=== PATIENT | female | born 1970 | race Caucasian/White ===

== ENCOUNTER 2023-10-07 18:40 | Inpatient (IN) | payer BC, SELFPAY ==
[2023-10-07] VITALS (7 sets, daily range): BP systolic 144–163; BP diastolic 71–120; BMI 20.9; BMI 22.7
--- NOTE | 2023-10-07 16:09 | EDRN ---
Dr. Martinez currently at the pts bedside speaking with the pt
--- NOTE | 2023-10-07 16:17 | ED.GENMED ---
History of Present Illness
General
Chief Complaint: Fall
Source: patient
Exam Limitations: none
Time Seen by Provider: 10/07/23 15:45
Nursing documentation reviewed up to this point in time: agreed with
Travel History
Have you had any contact with someone who has COVID-19?: No
Do you have any symptoms of coronavirus? Fever > 100 degrees, chills, cough, shortness of breath, sore throat, loss of taste or smell, muscle aches, or headache?: No
History of Present Illness
History of Present Illness:
Patient presents to ED for evaluation after falling down inside her house last night, while intoxicated. Patient presents with bilateral shoulder pain with bruising along with rib pain, as well as laceration noted over left eyebrow. Denies chest
pain. Denies abdominal pain. Patient has vomited multiple times prior to arrival. Patient last alcohol intake was this morning. Denies dizziness. Denies blurred vision. Denies loss of sensation or weakness. Patient states that as she was
significantly intoxicated, she does not recall how and why she fell.
Past History
Past History
ED Past Medical History: CHF (Cardiomyopathy)
Social History
Tobacco: Smoker
Alcohol: Chronic alcoholic
Drug: None
Personal: Other
Living: with family
Employment: Employed (Hairdresser)
Family History
Family History: Other (Noncontributory)
Review of Systems
Review of Systems
Allergies reviewed?: Yes
All Other Systems: ROS reviewed and negative except as documented in HPI and ROS
Constitutional: Reports no symptoms; Denies fever
EENT: Reports no symptoms
Respiratory: Reports no symptoms; Denies trouble breathing
Cardiac: Reports no symptoms
ABD/GI: Reports no symptoms; Denies vomiting
: Reports no symptoms
Musculoskeletal: Reports other (rib/shoulder pain w bruising)
Skin: Reports other (eyebrow laceration)
Neurological: Reports no symptoms; Denies dizzy, headache or weakness
Phy Exam
Physical Exam
Physical Exam:
Physical Exam
General: mild painful distress, not acutely ill. afebrile. tachycardic
Head: an approx 1cm superficial laceration over left eyebrow without active bleeding, with ecchymosis.
Neck: supple. normal range of motion.
Heart: tachycardic, no murmur. equal radial pulses.
Lungs: no acute respiratory distress. clear bilaterally. b/l anterior rib tenderness at level of rib#8-10, without ecchymosis/swelling
Abdomen: normal bowel sounds. not tender.
Neuro: alert and oriented. no focal neurological deficits
Skin: no rash
Psychiatric: well kept. interactive and cooperative
Extremities: b/l shoulder ecchymosis/swelling noted without obvious deformity
Course
Orders/Labs/Results
Orders:
Orders
10/07/23 09:04
Urinalysis Routine
Date Specimen was Collected: 10/08/23
Time Specimen was Collected: 09:02
Urine Drug Abuse Screen Routine
Date Specimen was Collected: 10/08/23
Time Specimen was Collected: 09:02
10/07/23 Dinner
Clear Liquid
At Your Request: Limited Participation
10/07/23 15:14
Electrocardiogram (*1) Urgent
Reason for Study: Chest Pain
EKG- Treatment ONCE
10/07/23 15:53
0.9% Sodium Chloride 1000 ml [Nss] 1,000 ml IV BOLUS
10/07/23 16:02
Alcohol Urgent
Complete Blood Count/With Diff Urgent
Comprehensive Metabolic Panel Urgent
Magnesium Urgent
Serum Osmolality Urgent
Comment: ADDON
TSH Reflex To Free T4 Urgent
Comment: ADD ON
10/07/23 16:12
CT Head W/o Iv Contrast Urgent
Comment:
Reason For Exam: trauma
Trauma Shoulder, Left CR [CR Shoulder, Trauma - Left] Urgent
Comment:
Reason For Exam: fall
Trauma Shoulder, Right CR [CR Shoulder, Trauma - Right] Urgent
Comment:
Reason For Exam: fall
10/07/23 16:13
Lorazepam [Ativan] 0.5 mg IV NOW STA
Ondansetron Injectable [Zofran] 4 mg IV NOW STA
10/07/23 16:15
Electrocardiogram (*1) Urgent
Reason for Study: QTc Monitoring
EKG- Treatment ONCE
0.9% Sodium Chloride 1000 ml [Nss] 1,000 ml IV BOLUS
10/07/23 16:21
Trimethobenzamide [Tigan] 200 mg IM Q6HPRN PRN
10/07/23 16:23
HYDROmorphone [Dilaudid] 0.5 mg IV NOW STA
10/07/23 16:24
PT/INR [Prothrombin Time] Urgent
PTT Urgent
10/07/23 16:32
CT Cervical Spine W/o Iv Contr Urgent
Comment:
Reason For Exam: trauma
10/07/23 16:41
CT Chest With Iv Contrast Urgent
Comment:
Reason For Exam: trauma
10/07/23 17:29
Ondansetron Injectable [Zofran] 4 mg IV NOW STA
10/07/23 17:30
HYDROmorphone [Dilaudid] 0.5 mg IV NOW STA
10/07/23 17:34
Lorazepam [Ativan] 1 mg IV NOW STA
10/07/23 17:51
Shoulder Immobilizer Right- Tx ONCE
10/07/23 17:57
0.9% Sodium Chloride 500 ml [Nss] 500 ml IV BOLUS
10/07/23 18:19
Admit/Transfer Patient As Directed
Co-Sign Provider:
Level of Care: Inpatient admission
Assign to:: Telemetry
Physician / Group: sharee bolden
Diagnosis: mechan fall w/bilat humeral head fx/s, etoh withdrawal, hypona, prolong qtc
Reason for Telemetry: Arrhythmia
Date to Stop Telemetry: 10/10/23
Time to Stop Telemetry: 11:00
Reason for Hospitalization: mechan fall w/bilat humeral head fx/s, etoh withdrawal, hypona, prolong qtc
Expected length of stay greater than two midnights?: Yes
ELOS- Estimated Length of Stay in days: 8
I certify the patient meets the requirements for IP care: Yes
Code Status As Directed
Resuscitation Status: Full Code
10/07/23 18:26
Consult Orthopedic [ORTHOPEDIC CONSULT] Routine
Consulting Provider: Spencer Myers
Was physician already notified: Yes
Reason for consult: filat humeral head fx/s etoh withdrawal
10/07/23 18:28
Add On- LAB Urgent
Tests Added?: tsh with free t4 reflex
10/07/23 18:29
Urine Osmolality Random [Osmolality, Random Urine] Routine
Date Specimen was Collected: 10/08/23
Time Specimen was Collected: 09:02
Urine Sodium Routine
Date Specimen was Collected: 10/08/23
Time Specimen was Collected: 09:02
Magnesium Sulfate 2 Gram/50 ml [Magnesium Sulfate] 2 gram in 50 ml IV NOW
10/07/23 18:31
Phenobarbital Sodium [Phenobarbital] 260 mg 0.9% Sodium Chloride 100 ml [Nss] 100 ml IV NOW
10/07/23 19:00
0.9% Sodium Chloride 1000 ml [Nss] 1,000 ml Mvi, Adult [Multivitamin] 10 ml Thiamine Injection 100 mg IV 100 mls/hr
10/07/23 20:19
0.9% Sodium Chloride 1000 ml [Nss] 1,000 ml IV 80 mls/hr
0.9% Sodium Chloride [Nss (Preservative Free)] See Protocol IV PRN PRN
FOLic ACID [Folvite] 1 mg 0.9% Sodium Chloride 50 ml [Nss] 50 ml IV DAILYPRN
HYDROmorphone [Dilaudid] 1 mg IV Q4HPRN PRN
Lorazepam [Ativan] 1 mg IV Q1HPRN PRN
Lorazepam [Ativan] 1 mg PO Q2HPRN PRN
Lorazepam [Ativan] 2 mg IV Q1HPRN PRN
Trimethobenzamide [Tigan] 200 mg IM Q6HPRN PRN
10/07/23 20:19
Case Management Consult Once
Case Management Consult: Other
Comment: Substance abuse counseling
DIETARY CONSULT Routine
Reason for Consult: Nutrition support, possible refeeding guidelines
Activity As Directed
Activity Level: With Assistance
Ice Application [Cold Application] As Directed
Location: [facility]
Frequency: Intermittent q2h
Duration of Application: No longer than 20 minutes
Method of Delivery: Ice packs
Intake/ Output As Directed
Frequency: Per unit guidelines
MSAS SCORE As Directed
MSAS Score 0-4: Repeat MSAS every 2 hours until 0-4 for three consecutive assessments, then every 4 hours x 48
hours.
MSAS Score 5-7: For MILD withdrawl symptoms. Repeat MSAS and RASS every 2 hours
MSAS Score 8-11: For MODERATE withdrawal symptoms. Repeat MSAS and RASS every 1 hour. Consider ICU or IMU
level of care.
MSAS Score > 11: For SEVERE withdrawal symptoms. Repeat MSAS and RASS every 1 hour. Notify provider, consider
ICU level of care.
MSAS Additional Instructions: If no improvement or no decrease in score from severe to moderate within 12
hours, consult psychiatry
MSAS Notify Provider: Notify provider if patient requires more than 10 mg of Lorazepam in eight hour period.
Vital Signs As Directed
Frequency: Per unit guidelines
Pulse Ox/spot Check [RESP] Routine
Quantity: 1
Rx Incentive Spirometry [RESP] Routine
Frequency: q1h while awake
Ot Eval And Treat Routine
Pt Eval And Treat Routine
Activity Level: With Assistance
DX Deep Vein Thrombosis Video Routine
10/07/23 20:40
B-Hydroxybutyrate Urgent
GGTP Urgent
PTT Urgent
Phosphorus Urgent
Prothrombin Time Urgent
10/08/23 00:00
Thiamine Injection 200 mg IV Q8
10/08/23 04:48
Complete Blood Count/With Diff IN AM
Comprehensive Metabolic Panel IN AM
10/08/23 06:00
EKG [Electrocardiogram (*1)] IN AM
Reason for Study: QTc Monitoring
10/08/23 08:00
FOLic ACID [Folvite] 1 mg PO DAILY
Phenobarbital Sodium [Phenobarbital] 97.5 mg IV TID
10/08/23 18:00
Enoxaparin Sodium [Lovenox] 40 mg SC QPM
10/09/23 06:00
Complete Blood Count/With Diff IN AM
Comprehensive Metabolic Panel IN AM
10/10/23 06:00
Complete Blood Count/With Diff IN AM
Comprehensive Metabolic Panel IN AM
10/10/23 08:00
Phenobarbital [Luminal] 64.8 mg PO TID
10/10/23 11:00
DC Protocol for Telemetry ONCE
10/10/23 20:00
Thiamine HCl [Vitamin B1] 100 mg PO BID
10/11/23 06:00
Complete Blood Count/With Diff IN AM
Comprehensive Metabolic Panel IN AM
10/12/23 06:00
Complete Blood Count/With Diff IN AM
Comprehensive Metabolic Panel IN AM
10/12/23 08:00
Phenobarbital [Luminal] 32.4 mg PO TID
Abnormal Lab Results
10/07/23
16:02
WBC 16.4 H 10^3/uL
(4.8-10.8)
RBC 3.31 L 10^6/uL
(4.20-5.40)
Hgb 11.7 L g/dL
(12.0-16.0)
Hct 33.1 L %
(37.0-47.0)
MCV 100.0 H fL
(81.0-99.0)
MCH 35.3 H pg
(27.0-31.0)
MPV 10.8 H fL
(7.4-10.4)
Abs Immat Gran (auto) 0.1 H 10^3/uL
(0-0.05)
Absolute Neuts (auto) 13.6 H 10^3/uL
(1.4-6.5)
Absolute Lymphs (auto) 0.9 L 10^3/uL
(1.2-3.4)
Absolute Monos (auto) 1.8 H 10^3/uL
(0.1-0.6)
Immature Gran % 0.6 H %
(0-0.5)
Neutrophils % 83.0 H %
(42.2-75.2)
Lymphocytes % 5.2 L %
(20.5-51.1)
Monocytes % 10.8 H %
(1.7-9.3)
Sodium 126 L mmol/L
(135-145)
Chloride 90 L mmol/L
(98-107)
Glucose 128 H mg/dl
(70-99)
Serum Osmolality 274 L mOsm/kg
(275-300)
AST 43 H U/L
(14-36)
Alkaline Phosphatase 132 H U/L
(38-126)
10/07/23 16:02
10/07/23 16:02
Vital Signs
Initial and Last Documented VS:
Initial Vital Signs
Temp Pulse Resp BP Pulse Ox
97.9 F 131 22 150/89 98
10/07/23 15:07 10/07/23 15:07 10/07/23 15:07 10/07/23 15:07 10/07/23 15:07
Last Documented Vital Signs
Temp Pulse Resp BP Pulse Ox
97.9 F 119 18 137/79 96
10/08/23 08:00 10/08/23 08:00 10/08/23 08:00 10/08/23 08:00 10/08/23 08:00
MDM/Problems Addressed
MDM/Problems Addressed:
CT head and CT cervical spine: No acute findings.
X-ray: Bilateral humerus fracture with subluxation as well as subacute rib fracture. (orthopaedic surgery) notified via [employer]
Patient with persistent nausea sensation with intermittent vomiting episodes despite treatment. Patient also high risk for development of alcohol withdrawals, i.e. DTs. As such, patient will be admitted for further evaluation and treatment.
*EKG
Interpreted by ED Provider?: Yes
EKG Intrepretation Date: 10/07/23
Heart Rate: 115
Rate: tachycardiac
Rhythm: sinus
[place]: normal axis
Interval: long QT
*Critical Care Note
Total Time (30-74mins, 75-104mins- exclusive of procedures): Not Applicable
ED Attending Note
-
Portions of this chart may have been created with voice recognition software.� Occasional wrong word or��sound alike� substitutions may have occurred due to the inherent limitations of voice recognition software.
Discharge Plan
Departure
Patient Disposition: Admit
Date of Disposition: 10/07/23
Time of Disposition: 17:43
Admit to: IMU
Presentation/result/management discussed w/ accepting MD/DO: Hospitalist
Discharge Problem:
Alcoholism, Fracture, humerus, Fracture of rib, Hyponatremia
Interventions
Interventions:
*Risk Screen - Suicide Last Done: 10/07/23 15:07
*General Assessment Last Done: 10/07/23 15:07
*Neglect/Abuse Screening Last Done: 10/07/23 15:07
ED- Fall Risk Assessment Last Done: 10/07/23 16:09
*ED COVID-19 Vaccine History Last Done: 10/07/23 16:09
*Nursing Disposition Last Done: 10/07/23 20:06
ED-Musculoskeletal Assessment Last Done: 10/07/23 16:09
ED- Neurological Assessment Last Done: 10/07/23 16:09
ED-Psychological Assessment Last Done: 10/07/23 16:09
ED-Skin Assessment Last Done: 10/07/23 16:09
Discharge Date and Time
Discharge Date/Time: 10/07/23 20:07
[2023-10-07] MEDS: NSS 1000 IV (16:25)
[2023-10-07] MEDS: DILAUDID 0.5 MG IV ×2 (16:25→17:37)
[2023-10-07] MEDS: TIGAN 200 MG IM (16:25)
[2023-10-07 16:35] LABS: % Basophils 0.2 % (0-2); % Eosinophils 0.2 % (0-6); % Immature Granulocytes 0.6 % (0-0.5); % Lymphocytes 5.2 % (20.5-51.1); % Monocytes 10.8 % (1.7-9.3); Absolute Immature Granulocytes 0.1 10^3/uL (0-0.05); Absolute Lymphocytes 0.9 10^3/uL (1.2-3.4); Absolute Monocytes 1.8 10^3/uL (0.1-0.6); Absolute Neutrophils 13.6 10^3/uL (1.4-6.5); Hematocrit 33.1 % (37.0-47.0); Hemoglobin 11.7 g/dL (12.0-16.0); Mean Corp Hgb Conc. 35.3 g/dL (33.0-37.0); Mean Corpuscular Hgb 35.3 pg (27.0-31.0); Mean Platelet Volume 10.8 fL (7.4-10.4); Nucleated Red Blood Cells % 0 %; Platelet Count 197 10^3/uL (130-400); Red Blood Cell Count 3.31 10^6/uL (4.20-5.40); Red Cell Dist. Width 13.6 % (11.5-14.5); White Blood Cell Count 16.4 10^3/uL (4.8-10.8)
[2023-10-07 16:47] LABS: INR 0.94; PT 12.4 Sec (11.4-14.6)
[2023-10-07 16:48] LABS: APTT 28.7 Sec (23.4-35.0)
[2023-10-07 16:50] LABS: ALT (SGPT) 22 U/L (0-35); AST (SGOT) 43 U/L (14-36); Albumin 4.3 g/dl (3.5-5.0); Alkaline Phosphatase 132 U/L (38-126); Blood Urea Nitrogen 16 mg/dl (7-17); Calcium 9.1 mg/dl (8.4-10.2); Carbon Dioxide 25 mmol/L (22-30); Chloride 90 mmol/L (98-107); Estimated Creatinine Clearance 68 ml/min; Glucose 128 mg/dl (70-99); Magnesium 1.6 mg/dl (1.6-2.3); Potassium 3.6 mmol/L (3.5-5.1); Sodium 126 mmol/L (135-145); Total Bilirubin 1.1 mg/dl (0.2-1.3); eGFR > 60.00
[2023-10-07 16:52] LABS: Alcohol None Detected
[2023-10-07] MEDS: ZOFRAN 4 MG IV (17:37)
--- NOTE | 2023-10-07 17:55 | HPS.HSE ---
Addendum entered and electronically signed by Kasia Gomez MD 10/07/23 21:48:
Patient seen and evaluated with BUTCHER SCULLION. Agree with H&P findings. Discussed patient and agree stated assessment and plan.
Briefly, 53 F. H/O ETOH dependence (daily vodka intake) and h/o withdrawal symptoms presents to ED following a fall from standing height at home. Found to have bilateral humeral neck fractures, subacute rib fractures. Head CT negative.
Per Ortho, going to OR after inpatient detox. Hypertensive, tachycardic and tremulous in ED already in withdrawal with high risk of DT and withdrawal seizures. QTc prolongation on ECG.
Admit to telemtry. Withdrawal protocol with phenobarb taper. IV hydration. 2g IV mag. Pain control and antiemetics.
DVT PPx with lovenox sq
Full Code
Original Note:
Family Physician
-
Family Physician: * NONE
Chief Complaint
-
Fall bilateral shoulder pain
History of Present Illness
53-year-old female from home who states she was drinking vodka last night approximate 1/2 pint with 2 beers at some point she recalls falling in her enclosed porch area at approximately 3 AM. She reports she crawled into her living room where she
was able to get up to the sofa and was found at 10 AM 7 hours later by her . At that time she was having some dry heaving. She was unable to move her arms secondary to pain. She normally drinks as soon as she wakes up in the morning her
gave her 1 beer at approximately 1130 to try to stop her vomiting he felt was due to alcohol withdrawal. She normally drinks anywhere from 1/3-1 full bottle 750 mL of vodka daily and smokes 1 pack a day. She has never had alcohol rehab
except for a 302 5 years ago forced. She has been unemployed for the last 2 and half years according to her at bedside. She is a contusion to the left side of her forehead with abrasion over left eyebrow, bilateral shoulder contusions with
decreased range of motion secondary to bilateral humeral head fractures. Distal sensation to both hands are intact. She denies headache, blurred vision, chest pain, palpitations, shortness of breath, abdominal pain, nausea vomit, diarrhea, urinary
symptoms, fever, chills. She is has medical history of alcohol abuse, nicotine abuse. She did take Advil 600 mg prior to arrival of which she does not take daily she reported.
Medical History
Past Medical History
Past Medical History: Reports Other (Alcohol abuse, nicotine abuse)
Past Surgical History: Reports Other (D&C)
Social History
Tobacco: Smoker (1 pack/day)
Alcohol: Daily (1/3-1 750 mL bottle of vodka daily)
Personal:
Living: With Family ()
Employment: Not Employed
Family History
Family History: Not pertinent
Allergies / Home Medications
Allergies reflects when Allergies were last updated in [employer].
Home Medications with original date entered in [employer]
Allergy/Medication List:
Allergies
Allergy/AdvReac Type Severity Reaction Status Date / Time
No Known Allergies Allergy Verified 10/07/23 15:07
Home Medications
ibuprofen 200 mg tablet (Advil) 600 mg PO DAILYPRN PRN mild pain 10/07/23
Review of Systems
-
History Source: Patient and Family ( at bedside)
A 12 point ROS was completed and negative except as noted: Yes
Constitutional: Denies Fever
EENT: Denies Sore Throat or Runny Nose
Respiratory: Reports Cough; Denies Trouble Breathing
Cardiac: Denies Chest Pain, Diaphoresis, Palpitations or Syncope
Abdomen/GI: Reports Nausea and Vomiting; Denies Abdominal Pain, Diarrhea, Constipated, Bloody Stools or Black Stools
: Denies Dysuria, Frequency, Flank Pain, Incontinence, Difficulty Voiding or Urgency
Musculoskeletal: Reports Joint Pain and Joint Swelling (Bilateral humerus); Denies Edema
Skin: Denies Itching or Rash
Neurological: Denies Dizzy, Headache or Weakness
Endocrine: Reports No Symptoms
Hematologic/Lymphatic: Reports No Symptoms
Psych: Reports Calm
Physical Exam
Vital Signs
Vital Signs
Temp Pulse Resp BP Pulse Ox
97.9 F 120 17 156/120 95
10/07/23 15:07 10/07/23 16:15 10/07/23 16:15 10/07/23 16:01 10/07/23 16:15
Physical Exam
General: Conversant and Pain; No Fever
HEENT: NormoCephalic, Anicteric, Moist mucous membranes, PERRLA, [place] Conjunctivae, No Ptosis, Nose Appears Normal, Neck Nontender and Other (Contusion left frontal forehead, abrasion left eyebrow)
Respiratory: Clear; No Wheezes, Rales or Rhonchi
Cardiac: S1/S2 and Regular Rhythm; No Murmur, Rub, Gallop or Peripheral Edema
Breast: Deferred by me
GI: Soft, Non Tender, Non Distended, Normal Bowel Sounds and No Hepatosplenomegaly
Rectal: Deferred by Provider
Genito-urinary: Deferred by me
Musculoskeletal: No Clubbing, No Cyanosis, Edema, Left Upper Extremity (Shoulder with upper humerus swelling, erythema, limited range of motion secondary to humeral head fracture, distal sensation intact, normal cap refill) and Edema, Right Upper
Extremity (Shoulder with upper humerus swelling, erythema, limited range of motion secondary to humeral head fracture, distal sensation intact, normal cap refill); No Edema, Left Lower Extremity or Edema, Right Lower Extremity
Skin: Warm and Dry
Neuro: AO x 3, No Motor Deficits, Nonfocal/grossly intact, Cranial Nerves Intact, No Sensory Deficits and Tremors (Bilateral hands); No Slurred Speech or Facial Droop
Psych: Calm
Laboratory Results
-
10/07/23 16:02
10/07/23 16:02
Laboratory Results
PT 12.4 Sec (11.4-14.6) 10/07/23 16:24
INR 0.94 10/07/23 16:24
APTT 28.7 Sec (23.4-35.0) 10/07/23 16:24
Total Bilirubin 1.1 mg/dl (0.2-1.3) 10/07/23 16:02
AST 43 U/L (14-36) H 10/07/23 16:02
ALT 22 U/L (0-35) 10/07/23 16:02
Alkaline Phosphatase 132 U/L (38-126) H 10/07/23 16:02
Impression/Plan
-
Impression/plan
Admit to telemetry
# Mechanical fall 2/2 alcohol intoxication with bilateral humeral head fractures/subacute ninth 10th right rib fractures
-Consult Ortho�Dr. Ritting aware
-Ice
-As needed Dilaudid
-Ice chips advance diet as tolerated
-Bilateral arm slings
PT/OT/transplant case manager consult
CT chest with IV contrast:
1. Comminuted displaced bilateral proximal humerus fractures
2. Posterior lateral right ninth and 10th subacute/partially healed rib fractures
CT head and cervical spine: No acute intracranial abnormality, no fracture or subluxation of the cervical spine
Left and right shoulder x-rays:
Displaced comminuted bilateral proximal numerous fractures associated with bilateral glenohumeral joint subluxation/dislocations
#Alcohol withdrawal/alcohol abuse
EtOH negative, last drink 11:30 AM 1 beer
Normally drinks 1/3-1 bottle 750 mL vodka daily
-MSAs screen protocol
-IV thiamine, IV folate
-Phenobarb taper
EKG: Sinus tach 115 bpm, QTc 614 MS
#Prolonged QTc
QTc 614 MS will monitor on telemetry
-Repeat EKG in a.m.
Magnesium 1.6
-will give mag rider 2 g
-Tigan as needed nausea vomiting
#Leukocytosis likely secondary to fall
Will follow CBC
-CT chest negative
#Hypertension likely secondary to alcohol withdrawal/pain
156/120 > 156/83 post IV Dilaudid
Will monitor
#Hyponatremia euvolemic
NA 126
IV NSS 1 L
-Check TSH with free T4, urine NA, urine Osmo, serum Osmo
DVT prophylaxis
Subcu Lovenox
Full code
[2023-10-07] MEDS: ATIVAN 1 MG IV (17:57)
[2023-10-07] MEDS: NSS 500 IV (17:58)
--- NOTE | 2023-10-07 18:06 | EDRN ---
Erica Escalante [employer] at the pts bedside along with Dr. Dougherty speaking with the pt and the pts
[2023-10-07] MEDS: MULTIVITAMIN 1011 MG IV (18:30)
[2023-10-07] MEDS: MULTIVITAMIN 1011 ML IV (18:30)
[2023-10-07] MEDS: MAGNESIUM SULFATE 50 IV (18:41)
[2023-10-07] MEDS: PHENOBARBITAL 104 MG IV (18:48)
[2023-10-07 20:14] LABS: Osmolality Serum 274 mOsm/kg (275-300)
[2023-10-07 20:50] LABS: TSH Reflex To Free T4 0.88 uIU/ml (0.47-4.68)
[2023-10-07 21:01] LABS: GGTP 183 U/L (12-43); Phosphorus 5.2 mg/dl (2.5-4.5)
[2023-10-07 21:08] LABS: B-Hydroxybutyrate 0.35 mmol/L (0.02-0.27)
[2023-10-07 21:10] LABS: INR 0.96; PT 12.6 Sec (11.4-14.6)
[2023-10-07 21:11] LABS: APTT 28.4 Sec (23.4-35.0)
[2023-10-08] MEDS: DILAUDID 1 MG IV (02:32)
[2023-10-08] MEDS: NICODERM TRANSDERMAL 21 MG TRANSDERM ×2 (02:33→08:52)
[2023-10-08 02:43] VITALS: BP 142/90
[2023-10-08] MEDS: NSS 1000 IV (04:41)
[2023-10-08] MEDS: THIAMINE INJECTION 200 MG IV ×3 (04:46→15:58)
--- NOTE | 2023-10-08 05:35 | PTCARENOTE ---
Pt arrived via stretcher. Pulled over to room bed. VSS. drowsy but arousable to verbal stimuli. Complained of slight pain with movements. NO other concerns. Bed locked and in lowest position. Side rails in place. Call light within reach. Pt ordered
MSAS see worklist.
[2023-10-08 05:50] LABS: % Basophils 0.5 % (0-2); % Immature Granulocytes 0.6 % (0-0.5); % Lymphocytes 18.4 % (20.5-51.1); % Monocytes 16.1 % (1.7-9.3); % Neutrophils 64.4 % (42.2-75.2); Absolute Immature Granulocytes 0.1 10^3/uL (0-0.05); Absolute Lymphocytes 1.5 10^3/uL (1.2-3.4); Absolute Monocytes 1.3 10^3/uL (0.1-0.6); Absolute Neutrophils 5.2 10^3/uL (1.4-6.5); Hematocrit 22.1 % (37.0-47.0); Mean Corp Hgb Conc. 35.3 g/dL (33.0-37.0); Mean Corpuscular Hgb 35.6 pg (27.0-31.0); Mean Corpuscular Volume 100.9 fL (81.0-99.0); Mean Platelet Volume 11.3 fL (7.4-10.4); Nucleated Red Blood Cells % 0 %; Platelet Count 114 10^3/uL (130-400); Red Blood Cell Count 2.19 10^6/uL (4.20-5.40); White Blood Cell Count 8.1 10^3/uL (4.8-10.8)
[2023-10-08 05:54] LABS: ALT (SGPT) 16 U/L (0-35); AST (SGOT) 33 U/L (14-36); Albumin 2.7 g/dl (3.5-5.0); Alkaline Phosphatase 93 U/L (38-126); Blood Urea Nitrogen 20 mg/dl (7-17); Calcium 7.7 mg/dl (8.4-10.2); Carbon Dioxide 25 mmol/L (22-30); Chloride 95 mmol/L (98-107); Estimated Creatinine Clearance 53 ml/min; Glucose 109 mg/dl (70-99); Potassium 4.1 mmol/L (3.5-5.1); Sodium 125 mmol/L (135-145); Total Bilirubin 0.7 mg/dl (0.2-1.3); eGFR > 60.00
[2023-10-08 06:02] LABS: Hemoglobin 7.8 g/dL (12.0-16.0)
[2023-10-08] MEDS: MAGNESIUM SULFATE 50 IV (06:42)
[2023-10-08 08:00] VITALS: BP 137/79
--- NOTE | 2023-10-08 08:43 | W.PN.UPDATE ---
Update Note
Progress Note Update
53-year-old female seen this morning for consult. Full H&P will follow. Images were shown and discussed with the patient as well as the significance of her injuries. She is recommended for CT scan for her bilateral shoulders given the amount of
displacement and for surgical planning for possible reverse total shoulder arthroplasty. Patient verified understanding. Tentative for OR 10 October 2023 pending imaging.
Monitor hemoglobin with drop to 7.8; evidence of hemarthrosis right greater than left on examination but no sign of hemodynamic instability relative to fractures
Patient states may require anxiolytic for CT scans; and recommendation per primary with current alcohol withdrawal treatment.
[2023-10-08] MEDS: FOLVITE 1 MG PO (08:47)
[2023-10-08] MEDS: PHENOBARBITAL 97.5 MG IV ×3 (08:47→21:20)
--- NOTE | 2023-10-08 08:51 | W.PN.HOSP.TC ---
Today's Communication/Plan
-
see note
Assessment / Plan
Assessment / Plan
CT chest with IV contrast:
�� � � � � � � 1.� Comminuted displaced bilateral proximal humerus fractures
�� � � � � � � 2.� Posterior lateral right ninth and 10th subacute/partially healed rib fractures
CT head and cervical spine: No acute intracranial abnormality, no fracture or subluxation of the cervical spine
Left and right shoulder x-rays:
� � � � � � � � Displaced comminuted bilateral proximal numerous fractures associated with bilateral glenohumeral joint subluxation/dislocations

# Mechanical fall 2/2 alcohol intoxication with bilateral humeral head fractures/subacute ninth 10th right rib fractures
-Consult Ortho�Dr. Lucia aware
-Ice chips advance diet as tolerated
-Bilateral arm slings
-Oral narcotics and IV pain meds, adjusted
#Alcohol withdrawal/alcohol abuse
-EtOH negative, last drink at 10/06 Noon
-Normally drinks 1/3-1 bottle 750 mL vodka daily
-MSAs screen protocol
-IV thiamine, IV folate
-Phenobarb taper and IV ativan as needed
-Patient would benefit with alc rehab but with b/l humeral fracture will need physical rehab first.
#Prolonged QTc
Hypomagnesemia
-QTc 614 at admit
-repeat EKG pending today.
-got mag 2g yesterday. low Ca today - giving 2g tressa gluconate.
-Tigan as needed nausea vomiting
-Avoid any QTc prolonging medication
#Leukocytosis likely secondary to fall
-Will follow CBC
-CT chest negative
#Acute on chronic macrocytic anemia
-r/o Intraperitoneal bleed -ct a/p wo contrast ordered
-no luminal blood loss/denies h/o of pud/gi bleed
-repeat CBC ordered
#Hypertension likely secondary to alcohol withdrawal/pain
156/120 > 156/83 post IV Dilaudid
Will monitor
#Hyponatremia euvolemic
-TSH/FT4 wnl
-suspecting low solute intake vs ADH excess state with pain
-Urine na/osm pending.
DVT prophylaxis -Subcu Lovenox
Full code
Patient is high risk for cardia arrthymia/arrest with prolonged QTc. Also remains high risk for withdrawal and further complication.
Total time spent : 53 mins
Anticipated Discharge: > 48 hours
Subjective/Interval History
-
Date of Service: October 08, 2023
comfortable in bed
requesting next dose of pain meds
oriented/no agitation reported
Objective Data
-
Labs:
Laboratory Results
10/07/23 10/08/23
20:40 04:48
WBC 8.1
Hgb 7.8 L D
Hct 22.1 L
Plt Count 114 L D
PT 12.6
INR 0.96
APTT 28.4
Sodium 125 L
Potassium 4.1
Chloride 95 L
Carbon Dioxide 25
BUN 20 H
Creatinine 0.9
Glucose 109 H
Calcium 7.7 L
Total Bilirubin 0.7
AST 33
ALT 16
Alkaline Phosphatase 93
Vital Signs:
Vital Signs
Temp Pulse Resp BP Pulse Ox
97.9 F 119 18 137/79 95
10/08/23 08:00 10/08/23 08:00 10/08/23 08:00 10/08/23 08:00 10/08/23 08:00
I&O
10/07/23 10/08/23 10/09/23
06:59 06:59 06:59
Intake Total 240 / 240
Balance 240 / 240
Review of Systems
-
Respiratory: Reports No Symptoms
Cardiac: Reports No Symptoms
Abdomen/GI: Reports No Symptoms
Musculoskeletal: Reports Joint Pain
Physical Exam
-
General: No Apparent Distress and Comfortable
HEENT: Negative Oxygen
Respiratory: Clear to Auscultation
Cardiac: Regular Rhythm and S1/S2; Negative Murmur or Rub
GI: Soft, Nontender and Nondistended
Musculoskeletal: No Edema and Other (Both shoulder swelling/erythema)
Neuro: Awake, Alert, Oriented, No Motor Deficits and Nonfocal/Grossly Intact
Psych: Calm
[2023-10-08] MEDS: ROXICODONE 5 MG PO ×2 (09:09→15:16)
[2023-10-08 09:18] LABS: Urine Albumin Trace (Neg - Trace); Urine Bilirubin 1+ (Negative); Urine Character Clear (Clear); Urine Color Amber; Urine Glucose Negative (Negative); Urine Ketone Trace (Negative); Urine Leukocyte Trace (Negative); Urine Nitrite Positive (Negative); Urine Occult Blood Negative (Negative); Urine Specific Gravity 1.015 (<1.030); Urine Urobilinogen Negative (Neg - 1+)
[2023-10-08 09:33] LABS: Osmolality Urine 582 mOsm/kg (300-900)
[2023-10-08 09:37] LABS: Urine Red Blood Cell 0-2 /HPF (0-2); Urine White Cell 0-2 /HPF (0-5)
[2023-10-08 09:47] LABS: Amphetamines Positive (Negative)
[2023-10-08 09:48] LABS: Barbiturates Positive (Negative); Benzodiazepines Positive (Negative); Buprenorphine Negative (Negative); Cocaine Negative (Negative); Marijuana Negative (Negative); Methadone Negative (Negative); Methamphetamines Positive (Negative); Opiates Positive (Negative); Phencyclidine Negative (Negative); Tricyclic Antidepressants Negative (Negative)
[2023-10-08] MEDS: CALCIUM GLUCONATE 100 IV (10:01)
[2023-10-08] MEDS: MIRALAX 17 GRAMS PO (10:01)
[2023-10-08 10:03] LABS: Urine Sodium 11 mmol/L (30-90)
[2023-10-08 10:11] LABS: Fentanyl, Urine Negative (Negative)
[2023-10-08 11:30] LABS: Vitamin D, 25-OH*** < 12.8 ng/mL (30-80)
--- NOTE | 2023-10-08 12:00 | CM ---
Addendum entered by Chantel Aguilera RN 10/08/23 12:04:
Received CM consult for substance abuse. Offered resources, but the patient declined.
Original Note:
Reviewed the chart notes and spoke with the patient at the bedside. Patient with bilateral arm slings in place. Per notes, plan is for OR 10/10/23 for possible reverse total shoulder arthroplasty. The patient resides with her spouse in a two story
home with two steps to enter. The patient reports no DME/VN/SNF in the past. The patient confirmed her pharmacy of choice is the [facility]. CM continues to be available to patient/family and is monitoring medical plan for
needs at discharge.
Plan: Discharge plans will depend on the patient's progress. May need short term SNF/rehab placement prior to transitioning home.
[2023-10-08 13:12] LABS: Hemoglobin 7.5 g/dL (12.0-16.0); Mean Corp Hgb Conc. 35.7 g/dL (33.0-37.0); Mean Corpuscular Hgb 36.2 pg (27.0-31.0); Mean Corpuscular Volume 101.4 fL (81.0-99.0); Mean Platelet Volume 10.8 fL (7.4-10.4); Platelet Count 105 10^3/uL (130-400); Red Blood Cell Count 2.07 10^6/uL (4.20-5.40); White Blood Cell Count 7.2 10^3/uL (4.8-10.8)
[2023-10-08 14:14] VITALS: BMI 22.7
[2023-10-08 14:52] VITALS: BMI 23.2
[2023-10-08 16:00] VITALS: BP 143/86
[2023-10-08] MEDS: LOVENOX 40 MG SC (18:31)
[2023-10-08 19:45] VITALS: BP 127/80
[2023-10-08] MEDS: ROXICODONE 10 MG PO (20:06)
--- NOTE | 2023-10-08 20:32 | CON.ORTHO ---
Consultation
-
Date/Time Consultation Requested: 10/07/2023 1826
Date/Time Consultation Performed: 10/08/2023 0800
Requesting Provider: THAI Escalante
Performing Provider: REJI Sauer, Dr. Spencer Myers
Reason for Consultation: Bilateral proximal humerus fractures
Consultation - Orthopedics
History
53-year-old tyozv-yllo-xdctkvlg female admitted to [facility] after an unwitnessed fall secondary to intoxication 06 October 2023 and admitted through the emergency department 07 October 2023 secondary to pain in the bilateral upper
extremities. While intoxicated she had an unwitnessed fall and noted severe pain later when sobering. She denies any chronic pain in her upper extremities. She does not recall any preceding events. Denies any paresthesias at this time. Reports
some minor back soreness but denies any other injury sustained.
Allergies / Home Medications
Allergy/AdvReac Type Severity Reaction Status Date / Time
No Known Allergies Allergy Verified 10/07/23 15:07
Medication Instructions Recorded
ibuprofen 200 mg tablet (Advil) 600 mg PO DAILYPRN PRN mild pain 10/07/23
Past Medical History: Reports Other (Alcohol abuse, nicotine abuse)
Past Surgical History: Reports Other (D&C)
Social History
Tobacco: Smoker (1 pack/day)
Alcohol: Daily (1/3-1 750 mL bottle of vodka daily)
Personal:
Living: With Family ()
Employment: Not Employed
Right hand dominant
Family History
Family History: Not pertinent
ROS: 12 point ROS negative other than per HPI
Vital Signs / Lab Results
Temp Pulse Resp BP Pulse Ox
99.0 F 118 18 143/86 97
10/08/23 16:00 10/08/23 16:00 10/08/23 16:00 10/08/23 16:00 03/18/24 16:00
10/08/23 04:48
Physical examination:
General: Well-nourished well-developed no acute distress conscious alert and oriented
Musculoskeletal: Examination of bilateral upper extremities shows swelling with erythematous skin right greater than left with large underlying hemarthrosis localized about the shoulder and some swelling in towards the mid brachium. She has no
significant edema past the elbows and distally and is neuro vas intact C5-T1 with sensation intact to light touch in the axillary nerve dermatome. Motor functions intact to the AIN PIN and ulnar nerve, sensation intact to light touch radial ulnar
and median nerve. Wrist capillary refill is 2 seconds palpable radial pulse.
Imaging:
X-rays taken of the bilateral shoulders show comminuted bilateral fractures with significant subluxation and malrotation of the humeral heads at the level of the surgical neck.
Assessment / Plan
53-year-old kiwuf-tiuf-cctchuzx female with significant past medical history of alcohol abuse and tobacco use with unwitnessed fall secondary to intoxication 06 October 2023 and admitted 07 October 2023 with comminuted fracture subluxations of her
bilateral proximal humerus.
Images were shown and discussed with the patient showing the severity of her injuries bilaterally. Discussed with the patient the proximal humerus fractures cannot be treated nonoperatively however with the malrotation and subluxation and her young
age she is recommended for operative invention. She is a high risk for avascular necrosis with the amount of subluxation and displacement of the humeral head relative to the humerus. Patient is likely best recommended for total shoulder
arthroplasty. Her fall was unwitnessed and may have been higher mechanism however with her history of alcohol abuse there is likely component of osteoporosis involved as these are typically fragility fractures. See comments below. At this time
patient is recommended for bilateral CT scan of the shoulder for operative planning and evaluate the extent of her fracture pattern. She is tentatively to the OR 10 October 2023; pending CT scans will confirm operative planning if medically cleared.
-Nonweightbearing to bilateral upper extremities; no range of motion of the shoulder bilateral.
-DVT PPx per primary
-Pain regimen on board
-Will continue to monitor hemoglobin and was low at 7.8 today and likely multifactorial with her past medical history and relative towards hemarthrosis but no evidence of hemodynamic instability on examination.
Discussed with the patient that the sustained fracture is commonly known as a fragility fracture secondary to osteoporosis. Further explained the fracture is unlikely to occur in normal physiological bone and occurs with more fragile bone in
classically described locations such as the hip, distal radius, proximal humerus, and spine. Reviewed that patients with fragility fractures have an increased risk of second and even third fragility fractures over the next 1 to 2 years. Recommend
a follow-up discussion with their PCP discuss treatment for osteoporosis and mitigate fall risk is much as possible include modalities such as assistive devices.
[2023-10-08 23:13] VITALS: BP 111/70
[2023-10-08 23:35] LABS: Hemoglobin 7.3 g/dL (12.0-16.0); Mean Corp Hgb Conc. 36.3 g/dL (33.0-37.0); Mean Corpuscular Hgb 36.1 pg (27.0-31.0); Mean Corpuscular Volume 99.5 fL (81.0-99.0); Mean Platelet Volume 11.3 fL (7.4-10.4); Platelet Count 98 10^3/uL (130-400); Red Blood Cell Count 2.02 10^6/uL (4.20-5.40); Red Cell Dist. Width 13.7 % (11.5-14.5); White Blood Cell Count 6.5 10^3/uL (4.8-10.8)
[2023-10-08 23:37] LABS: Hematocrit 20.1 % (37.0-47.0)
[2023-10-09] VITALS (10 sets, daily range): BP systolic 109–137; BP diastolic 63–76
[2023-10-09] MEDS: ROXICODONE 10 MG PO ×6 (01:04→23:46)
[2023-10-09] MEDS: THIAMINE INJECTION 200 MG IV ×4 (01:05→23:45)
--- NOTE | 2023-10-09 06:37 | W.PN.UPDATE ---
Update Note
Progress Note Update
Patient seen and evaluated this morning by orthopedic surgery. Patient endorses discomfort to the bilateral shoulders, however reports that her symptoms are currently controlled with her current pain regimen. X-rays obtained of the bilateral
shoulder show comminuted bilateral fractures with significant subluxation of the humeral heads at the level of the surgical neck. Plan for OR on 10/10/2023, under direction of Dr. Myers. CT scan completed for pre-operative planning and
to evaluate the extent of her fracture pattern. Patient to remain nonweightbearing to the bilateral upper extremities, no range of motion of the bilateral shoulders. DVT prophylaxis per primary team. Pain management per primary team. Hemoglobin
7.3 (10/08/2023). Hemoglobin this AM 6.8. [facility] Text sent to primary team (Dr. Reynolds). Orthopedic surgery will continue to follow along.
[2023-10-09 06:58] LABS: % Basophils 0.6 % (0-2); % Eosinophils 0.2 % (0-6); % Immature Granulocytes 0.7 % (0-0.5); % Lymphocytes 19.3 % (20.5-51.1); % Monocytes 14.7 % (1.7-9.3); % Neutrophils 64.5 % (42.2-75.2); Absolute Lymphocytes 1.1 10^3/uL (1.2-3.4); Absolute Monocytes 0.8 10^3/uL (0.1-0.6); Absolute Neutrophils 3.5 10^3/uL (1.4-6.5); Mean Corp Hgb Conc. 34.7 g/dL (33.0-37.0); Mean Corpuscular Volume 103.7 fL (81.0-99.0); Mean Platelet Volume 11.3 fL (7.4-10.4); Nucleated Red Blood Cells % 0 %; Platelet Count 98 10^3/uL (130-400); Red Blood Cell Count 1.89 10^6/uL (4.20-5.40); Red Cell Dist. Width 13.5 % (11.5-14.5); White Blood Cell Count 5.5 10^3/uL (4.8-10.8)
[2023-10-09 07:01] LABS: Hematocrit 19.6 % (37.0-47.0); Hemoglobin 6.8 g/dL (12.0-16.0)
[2023-10-09 07:21] LABS: ALT (SGPT) 14 U/L (0-35); AST (SGOT) 37 U/L (14-36); Albumin 2.5 g/dl (3.5-5.0); Alkaline Phosphatase 96 U/L (38-126); Blood Urea Nitrogen 9 mg/dl (7-17); Calcium 7.8 mg/dl (8.4-10.2); Carbon Dioxide 27 mmol/L (22-30); Chloride 95 mmol/L (98-107); Estimated Creatinine Clearance 80 ml/min; Glucose 107 mg/dl (70-99); Magnesium 1.9 mg/dl (1.6-2.3); Phosphorus 3.5 mg/dl (2.5-4.5); Potassium 3.6 mmol/L (3.5-5.1); Sodium 123 mmol/L (135-145); Total Protein 4.8 g/dl (6.3-8.2); eGFR > 60.00
[2023-10-09] MEDS: MIRALAX PO (09:00)
[2023-10-09] MEDS: NICODERM TRANSDERMAL 21 MG TRANSDERM (09:01)
[2023-10-09] MEDS: FOLVITE 1 MG PO (09:03)
[2023-10-09] MEDS: PHENOBARBITAL 97.5 MG IV ×3 (09:06→23:44)
--- NOTE | 2023-10-09 10:24 | W.CON.NEPH ---
Consultation
-
Date/Time Consultation Requested: October 09, 2023 10:00 AM
Date/Time Consultation Performed: October 09, 2023 10:00 AM
Requesting Provider: Rodolfo
Performing Provider: Willow
Reason for Consultation: Hyponatremia
Medical History
-
Chief Complaint: Hyponatremia
History of Present Illness:
The patient is a 53-year-old female with a past medical history significant of ongoing alcohol abuse and a history of alcohol withdrawal symptoms who presented to the emergency room 2 days prior after falling. Subsequent imaging revealed bilateral
humeral neck fractures in association with subacute healed rib fractures. The patient was admitted to the hospital for her acute trauma and provided with benzodiazepines for anticipated alcohol withdrawal. She had been taking NSAIDs prior to her
admission for pain. When she presented to the emergency room she was hypertensive tachycardic and tremulous. The patient is to undergo bilateral shoulder surgery tomorrow on October 10, 2023. Nephrology was consulted as her serum sodium level has
now decreased from 126-123.
Past Medical History
Alcohol abuse with previous withdrawal
D&C for miscarriage
Genetic cardiomyopathy
Social History
Longstanding smoker 1 pack/day
Daily alcohol ingestion with 1/3-1 bottle of the 750 cc bottle of vodka daily
Family History
No CKD
Allergies / Home Medications
Allergy/AdvReac Type Severity Reaction Status Date / Time
No Known Allergies Allergy Verified 10/07/23 15:07
Medication Instructions Recorded Confirmed Type
ibuprofen 200 mg tablet (Advil) 600 mg PO DAILYPRN PRN mild pain 10/07/23 10/07/23 History
Review of Systems
-
History Source: Patient
All other systems: Negative unless noted
Constitutional: No Symptoms
EENT: Other (Abrasion over left eyebrow)
Respiratory: No Symptoms
Cardiac: No Symptoms
Abdomen/GI: No Symptoms
: No Symptoms
Musculoskeletal: Other (Bilateral shoulder pain)
Skin: No Symptoms
Neurological: No Symptoms
Endocrine: No Symptoms
Hematologic/Lymphatic: No Symptoms
Physical Exam
Vital Signs
Vital Signs
Temp Pulse Resp BP Pulse Ox
98.7 F 111 18 124/66 97
10/09/23 09:53 10/09/23 09:53 10/09/23 09:53 10/09/23 09:53 10/09/23 09:53
Lab Results
10/09/23 05:37
10/09/23 05:37
WBC 5.5 10^3/uL (4.8-10.8) 10/09/23 05:37
RBC 1.89 10^6/uL (4.20-5.40) L 10/09/23 05:37
Hgb 6.8 g/dL (12.0-16.0) L* 10/09/23 05:37
Hct 19.6 % (37.0-47.0) L* 10/09/23 05:37
Plt Count 98 10^3/uL (130-400) L 10/09/23 05:37
Sodium 123 mmol/L (135-145) L 10/09/23 05:37
Potassium 3.6 mmol/L (3.5-5.1) 10/09/23 05:37
Chloride 95 mmol/L (98-107) L 10/09/23 05:37
Carbon Dioxide 27 mmol/L (22-30) 10/09/23 05:37
BUN 9 mg/dl (7-17) 10/09/23 05:37
Creatinine 0.6 mg/dL (0.6-1.0) 10/09/23 05:37
eGFR > 60.00 10/09/23 05:37
Glucose 107 mg/dl (70-99) H 10/09/23 05:37
Calcium 7.8 mg/dl (8.4-10.2) L 10/09/23 05:37
Phosphorus 3.5 mg/dl (2.5-4.5) 10/09/23 05:37
Albumin 2.5 g/dl (3.5-5.0) L 10/09/23 05:37
Physical Exam
General: AOx3
HEENT: PERRL, EOMI, Anicteric, Conjunctivae Clear, Ear/Nose Intact, Hearing Normal, Oropharynx Clear/Moist, Neck Supple, Trachea Midline, No JVD, No Thyromegaly and Other (Abrasion over left brow)
Respiratory: Clear
Cardiac: Regular Rate/Rhythm
Breast: Deferred by me
Abdomen: Soft, Nontender, Nondistended, Normal Bowel Sounds and No Hepatosplenomegaly
Rectal: Deferred by Provider
Genito-urinary: No Costovertebral Tender
Musculoskeletal: No Clubbing, No Cyanosis and No Edema
Skin: No Rash
Neuro: Nonfocal/Grossly Intact, CN II-XII (Intact) and Strength (5 out of 5 in lower extremity, 1 out of 5 in upper extremity, patient in shoulder brace)
Hematologic/Lymphatic: No Cervical Lymphadenopathy, No Submandibular Lymphadenopathy and No Supraclavicular Lymphadenopathy
Psych: Mood/afflect pleasant
Assessment/Plan
-
Impression:
Euvolemic hyponatremia
Mechanical fall due to alcohol intoxication with bilateral humeral head fractures and subacute ninth and 10th rib fracture
Alcohol withdrawal with ongoing history of alcohol abuse
Prolonged QT C
Hypomagnesemia
Plan:
Euvolemic Hyponatremia
- urine osmolarity of 582 indicates SIADH likely potentiated from pain
-Decrease free water excretion likely due to previous administration of NSAIDs
-Will add fluid restriction
-Hypertonic saline to be provided for 250 cc at 30 cc/hr
-Recheck electrolytes at 6 PM tonight
Data Reviewed
-
Radiology: Report Reviewed by me
CT Scan: Report Reviewed by me (CT scan of chest and upper extremities reviewed from admission noting displaced proximal humerus fractures bilaterally)
Medical Tests (Nuc Med, Echo etc): Other (EKG report reviewed sinus tachycardic rhythm with septal infarct at 103 bpm)
Labs: Labs Reviewed by me
Old Records: Reviewed (Old records reviewed from September 30, 2017 sodium 148)
[2023-10-09] MEDS: SODIUM CHLORIDE 3% 250 IV (12:11)
--- NOTE | 2023-10-09 13:41 | CM ---
Reviewed the chart notes. Plan is for OR tomorrow. CM continues to be available to patient/family and is monitoring medical plan for needs at discharge.
Plan: Discharge plans will depend on the patient's progress. May need short term SNF/rehab placement prior to transitioning home.
--- NOTE | 2023-10-09 14:36 | W.PN.HOSP.TC ---
Today's Communication/Plan
-
for OR tomorrow
1 u prbc ordered
continue withdrawal protocol
nephrology eval
Assessment / Plan
Assessment / Plan
CT chest with IV contrast:
�� � � � � � � 1.� Comminuted displaced bilateral proximal humerus fractures
�� � � � � � � 2.� Posterior lateral right ninth and 10th subacute/partially healed rib fractures
CT head and cervical spine: No acute intracranial abnormality, no fracture or subluxation of the cervical spine
Left and right shoulder x-rays:
� � � � � � � � Displaced comminuted bilateral proximal numerous fractures associated with bilateral glenohumeral joint subluxation/dislocations

# Mechanical fall 2/2 alcohol intoxication with bilateral humeral head fractures/subacute ninth 10th right rib fractures
-Consult Ortho�Dr. Ritting aware
-Ice chips advance diet as tolerated
-Bilateral arm slings
-Oral narcotics and IV pain meds, adjusted
-For OR tomorrow
#Alcohol withdrawal/alcohol abuse
-EtOH negative, last drink at 317 Noon
-Normally drinks 1/3-1 bottle 750 mL vodka daily
-MSAs screen protocol
-IV thiamine, IV folate
-Phenobarb taper and IV ativan as needed
-Patient would benefit with alc rehab but with b/l humeral fracture will need physical rehab first.
#Prolonged QTc
Hypomagnesemia
-QTc 614 at admit
-repeat EKG showed improvement in QTc
-Tigan as needed nausea vomiting
-Avoid any QTc prolonging medication
#Leukocytosis likely secondary to fall - normalized
-CT chest negative
#Acute on chronic macrocytic anemia
-no intraperitoneal bleed on CT a/p
-no luminal blood loss/denies h/o of pud/gi bleed
-1 u prbc ordered today for hbg < 7
#Hypertension likely secondary to alcohol withdrawal/pain
156/120 > 156/83 post IV Dilaudid
Will monitor
#Hyponatremia euvolemic
-TSH/FT4 wnl
-suspecting low solute intake vs ADH excess state with pain
-nephro help requested as drifting down
DVT prophylaxis -Subcu Lovenox
Full code
Anticipated Discharge: > 48 hours
Subjective/Interval History
-
Date of Service: October 09, 2023
not excessive pain in arm
Objective Data
-
Labs:
Laboratory Results
10/09/23 10/09/23
05:37 18:00
WBC 5.5
Hgb 6.8 L*
Hct 19.6 L*
Plt Count 98 L
Sodium 123 L Pending
Potassium 3.6 Pending
Chloride 95 L Pending
Carbon Dioxide 27 Pending
BUN 9
Creatinine 0.6
Glucose 107 H
Calcium 7.8 L
Total Bilirubin 1.0
AST 37 H
ALT 14
Alkaline Phosphatase 96
Vital Signs:
Vital Signs
Temp Pulse Resp BP Pulse Ox
98.7 F 107 16 112/63 99
10/09/23 14:21 10/09/23 14:21 10/09/23 14:21 10/09/23 14:21 10/09/23 14:21
I&O
10/08/23 10/09/23 10/10/23
06:59 06:59 06:59
Intake Total 240 / 240 480 / 480 250 / 250
Balance 240 / 240 480 / 480 250 / 250
[2023-10-09] MEDS: LOVENOX 40 MG SC (17:04)
[2023-10-09 18:35] LABS: Carbon Dioxide 26 mmol/L (22-30); Chloride 93 mmol/L (98-107); Potassium 3.4 mmol/L (3.5-5.1); Sodium 123 mmol/L (135-145)
--- NOTE | 2023-10-09 22:30 | PTCARENOTE ---
Pt awoke from sleeping a reported that her right arm was having 10/10 pain and felt tight and warm. IV fluids were d/c approx 1915, arm was noted to have bruising and +1 edema both UE. RUE at this time is firmer above the iv site where pt is
reporting the discomfort. VSS, neurovascular WNL, house provider assessed pt at bedside. IV (2) in right wrist and forearm removed, elevated arms on pillow as tolerated at this time. Pt educated of s/s of DVT and encouraged to reports any changes to
[facility] staff immediately.
--- NOTE | 2023-10-10 02:05 | W.PN.UPDATE ---
Update Note
Progress Note Update
RN notified [employer]EL[employer] about patient with increase in Right arm swelling and pain above the IV site. Patient was receiving fluids through that IV site. Patient seen and evaluated, edema RUE>LUE, + pulses, sensation intact, denies tingling or numbness, mild
redness around IV site. Possible IV infiltration, Advised RN to remove Iv, elevate arm and compress and place another IV. Patient resting in bed. advised patient to let RN know of any worsening symptoms, Will do US of Right arm, if worsens.
[2023-10-10] MEDS: DILAUDID 0.25 MG IV (02:11)
[2023-10-10 03:27] VITALS: BP 111/65
[2023-10-10 05:14] LABS: % Basophils 0.4 % (0-2); % Eosinophils 0.3 % (0-6); % Immature Granulocytes 0.7 % (0-0.5); % Lymphocytes 15.1 % (20.5-51.1); % Neutrophils 68.5 % (42.2-75.2); Absolute Immature Granulocytes 0.1 10^3/uL (0-0.05); Absolute Lymphocytes 1.1 10^3/uL (1.2-3.4); Absolute Monocytes 1.1 10^3/uL (0.1-0.6); Hemoglobin 7.9 g/dL (12.0-16.0); Mean Corp Hgb Conc. 34.3 g/dL (33.0-37.0); Mean Corpuscular Hgb 34.3 pg (27.0-31.0); Mean Platelet Volume 11.7 fL (7.4-10.4); Nucleated Red Blood Cells % 0 %; Platelet Count 116 10^3/uL (130-400); Red Cell Dist. Width 15.4 % (11.5-14.5); White Blood Cell Count 7.3 10^3/uL (4.8-10.8)
[2023-10-10 05:43] LABS: ALT (SGPT) 15 U/L (0-35); AST (SGOT) 42 U/L (14-36); Albumin 2.7 g/dl (3.5-5.0); Alkaline Phosphatase 104 U/L (38-126); Blood Urea Nitrogen 5 mg/dl (7-17); Calcium 7.8 mg/dl (8.4-10.2); Carbon Dioxide 24 mmol/L (22-30); Chloride 97 mmol/L (98-107); Estimated Creatinine Clearance 80 ml/min; Glucose 104 mg/dl (70-99); Magnesium 1.7 mg/dl (1.6-2.3); Phosphorus 3.5 mg/dl (2.5-4.5); Potassium 3.1 mmol/L (3.5-5.1); Sodium 124 mmol/L (135-145); Total Bilirubin 1.3 mg/dl (0.2-1.3); Total Protein 5.1 g/dl (6.3-8.2); eGFR > 60.00
--- NOTE | 2023-10-10 05:57 | PTCARENOTE ---
Pt had no further episodes of increased pain or swelling in b/l UE throughout shift with no changes to neurovascular.
[2023-10-10 07:25] VITALS: BP 151/99
[2023-10-10] MEDS: NICODERM TRANSDERMAL 21 MG TRANSDERM (09:00)
[2023-10-10] MEDS: THIAMINE INJECTION 200 MG IV ×2 (09:02→17:17)
[2023-10-10] MEDS: MIRALAX PO (09:05)
[2023-10-10] MEDS: LUMINAL 64.7999999999999972 MG PO ×3 (09:05→21:15)
[2023-10-10] MEDS: FOLVITE 1 MG PO (09:05)
[2023-10-10] MEDS: ROXICODONE 10 MG PO ×3 (09:08→19:45)
--- NOTE | 2023-10-10 09:57 | W.PN.UPDATE ---
Update Note
Progress Note Update
Ms. Godoy is resting comfortably in bed this morning. She reports her pain is well controlled at present. We plan to proceed with OR today under the direction of Dr. Myers. Patient is scheduled to undergo bilateral shoulder ORIF versus
hemiarthroplasty versus reverse TSA. The risks, benefits, alternatives, recovery process and potential complications were discussed in detail. Surgical and blood consents are signed and in the patient's chart.
--NPO until surgery.
--Continue bilateral sling for immobilization. NWB to bilateral upper extremities.
--Continue pain control per primary.
--Hgb 7.9 this morning after transfusion yesterday. Continue to monitor. 2 units PRBC on hold for OR.
[2023-10-10 10:55] VITALS: BP 120/69
--- NOTE | 2023-10-10 11:46 | W.PN.NEPH.PH ---
Today's Communication / Plan
-
samsca
repalce k
Assessment/Plan
-
Impression:
Euvolemic hyponatremia
Mechanical fall due to alcohol intoxication with bilateral humeral head fractures and subacute ninth and 10th rib fracture
Alcohol withdrawal with ongoing history of alcohol abuse
Prolonged QT C
Hypomagnesemia
vit D def
Plan:
Euvolemic Hyponatremia
- urine osmolarity of 582 indicates SIADH likely potentiated from pain
low U na likely suggest low solute intake
sodium no sig change with 3% saline , TSH normal
will dose samsca today
hoping to see improved levels by tomorrow
cont fluid restriction
check labs later today
replace k
low vit D level, start D2
d/w pt and primary
would suggest sodium to be optimized before surg
-
-
Date of Service: October 10, 2023
CC / HPI / ROS
-
Chief Complaint:
hyponatremia
History of Present Illness:
sodium no aig change at 124
BP are stable
hb better at 7.9 post PRBC
k low 3.1
Review of Systems:
still in pain bilat UE
IV infiltrated right UE
Labs
-
Labs:
WBC 7.3 10^3/uL (4.8-10.8) 10/10/23 03:49
RBC 2.30 10^6/uL (4.20-5.40) L 10/10/23 03:49
Hgb 7.9 g/dL (12.0-16.0) L 10/10/23 03:49
Hct 23.0 % (37.0-47.0) L 10/10/23 03:49
Plt Count 116 10^3/uL (130-400) L 10/10/23 03:49
Sodium 124 mmol/L (135-145) L 10/10/23 03:49
Potassium 3.1 mmol/L (3.5-5.1) L 10/10/23 03:49
Chloride 97 mmol/L (98-107) L 10/10/23 03:49
Carbon Dioxide 24 mmol/L (22-30) 10/10/23 03:49
BUN 5 mg/dl (7-17) L 10/10/23 03:49
Creatinine 0.6 mg/dL (0.6-1.0) 10/10/23 03:49
eGFR > 60.00 10/10/23 03:49
Glucose 104 mg/dl (70-99) H 10/10/23 03:49
Calcium 7.8 mg/dl (8.4-10.2) L 10/10/23 03:49
Phosphorus 3.5 mg/dl (2.5-4.5) 10/10/23 03:49
Albumin 2.7 g/dl (3.5-5.0) L 10/10/23 03:49
Physical Exam
-
Vital Signs:
Vital Signs
Temp Pulse Resp BP Pulse Ox
98.7 F 103 17 120/69 97
10/10/23 10:55 10/10/23 10:55 10/10/23 10:55 10/10/23 10:55 10/10/23 10:55
Cardiovascular:: Regular rate and rhythm
Respiratory:: Bilateral: CTA
Lung Excursion:: Normal
Abdomen:: Nontender and Soft
Extremity Edema:: None: Bilateral:
Garay Catheter: No
Other Findings::
bilat UE mild edema
[2023-10-10] MEDS: SAMSCA 15 MG PO (12:51)
[2023-10-10] MEDS: KCL 40 MEQ PO ×2 (12:51→21:58)
--- NOTE | 2023-10-10 13:06 | W.PN.HOSP.TC ---
Today's Communication/Plan
-
dose of samsca, repeat Na check in evening
Ortho notified about low sodium,
resume back diet
Assessment / Plan
Assessment / Plan
CT chest with IV contrast:
�� � � � � � � 1.� Comminuted displaced bilateral proximal humerus fractures
�� � � � � � � 2.� Posterior lateral right ninth and 10th subacute/partially healed rib fractures
CT head and cervical spine: No acute intracranial abnormality, no fracture or subluxation of the cervical spine
Left and right shoulder x-rays:
� � � � � � � � Displaced comminuted bilateral proximal numerous fractures associated with bilateral glenohumeral joint subluxation/dislocations

# Mechanical fall 2/2 alcohol intoxication with bilateral humeral head fractures/subacute ninth 10th right rib fractures
-Consult Ortho�Dr. Ritting aware
-Ice chips advance diet as tolerated
-Bilateral arm slings
-Oral narcotics and IV pain meds, adjusted
-OR to be postponed with acute hyponatremia
#Alcohol withdrawal/alcohol abuse
-EtOH negative, last drink at 317 Noon
-Normally drinks 1/3-1 bottle 750 mL vodka daily
-MSAS scores reviewed and remains in acceptable range.
-IV thiamine, IV folate
-Phenobarb taper and IV ativan as needed
-Patient would benefit with alc rehab but with b/l humeral fracture will need physical rehab first.
# Acute hyponatremia
-TSH/FT4 wnl
-suspecting low solute intake vs ADH excess state with pain
-s/p 3% yesterday, Na remains at 124 - samsca dose to be provided today
-Nephro help appreciated
# RUE swelling
-from infiltrated IV line with 3% NS infusion
-Venous US ordered
#Prolonged QTc
Hypomagnesemia
-QTc 614 at admit
-repeat EKG showed improvement in QTc to 437 ms
-Tigan as needed nausea vomiting
-Avoid any QTc prolonging medication
#Leukocytosis likely secondary to fall - normalized
-CT chest negative
#Acute on chronic macrocytic anemia
-no intraperitoneal bleed on CT a/p
-no luminal blood loss/denies h/o of pud/gi bleed
-1 u prbc ordered. Hbg 7.9 today. monitor trend.
#Hypertension likely secondary to alcohol withdrawal/pain
-controlled at this point
DVT prophylaxis -Subcu Lovenox
Full code
Anticipated Discharge: 24 - 48 hours
Subjective/Interval History
-
Date of Service: October 10, 2023
RUE swelling
bilateral erythema in shoulder
no issues overnight
Objective Data
-
Labs:
Laboratory Results
10/10/23 10/10/23
03:49 19:00
WBC 7.3
Hgb 7.9 L
Hct 23.0 L
Plt Count 116 L
Sodium 124 L Pending
Potassium 3.1 L Pending
Chloride 97 L Pending
Carbon Dioxide 24 Pending
BUN 5 L Pending
Creatinine 0.6 Pending
Glucose 104 H Pending
Calcium 7.8 L Pending
Total Bilirubin 1.3
AST 42 H
ALT 15
Alkaline Phosphatase 104
Vital Signs:
Vital Signs
Temp Pulse Resp BP Pulse Ox
98.7 F 103 17 120/69 97
10/10/23 10:55 10/10/23 10:55 10/10/23 10:55 10/10/23 10:55 10/10/23 10:55
I&O
10/09/23 10/10/23 10/11/23
06:59 06:59 06:59
Intake Total 480 / 480 1550 / 1550
Balance 480 / 480 1550 / 1550
Review of Systems
-
Respiratory: Reports No Symptoms
Cardiac: Reports No Symptoms
Abdomen/GI: Reports No Symptoms
Physical Exam
-
General: No Apparent Distress and Comfortable
HEENT: Negative Oxygen
Respiratory: Clear to Auscultation
Cardiac: Regular Rhythm and S1/S2; Negative Murmur or Rub
GI: Soft, Nontender and Nondistended
Musculoskeletal: No Edema and Other (Both shoulder swelling/erythema)
Neuro: Awake, Alert, Oriented, No Motor Deficits and Nonfocal/Grossly Intact
Psych: Calm
[2023-10-10] MEDS: DRISDOL (VITAMIN D2) 50000 UNITS PO (14:05)
[2023-10-10 15:30] VITALS: BP 133/77
[2023-10-10] MEDS: LOVENOX 40 MG SC (17:17)
[2023-10-10 19:24] LABS: Blood Urea Nitrogen 5 mg/dl (7-17); Calcium 8.3 mg/dl (8.4-10.2); Carbon Dioxide 25 mmol/L (22-30); Chloride 96 mmol/L (98-107); Estimated Creatinine Clearance 80 ml/min; Glucose 120 mg/dl (70-99); Potassium 3.3 mmol/L (3.5-5.1); Sodium 128 mmol/L (135-145); eGFR > 60.00
[2023-10-10] MEDS: VITAMIN B1 100 MG PO (19:45)
[2023-10-10 19:52] VITALS: BP 138/82
[2023-10-10 23:40] VITALS: BP 136/79
[2023-10-11] VITALS (17 sets, daily range): BP systolic 72–147; BP diastolic 35–87
[2023-10-11] MEDS: ROXICODONE 10 MG PO ×5 (00:03→21:47)
[2023-10-11 06:42] LABS: % Basophils 0.4 % (0-2); % Eosinophils 0.7 % (0-6); % Immature Granulocytes 0.4 % (0-0.5); % Lymphocytes 15.1 % (20.5-51.1); % Monocytes 15.6 % (1.7-9.3); % Neutrophils 67.8 % (42.2-75.2); Absolute Eosinophils 0.1 10^3/uL (0-0.7); Absolute Monocytes 1.1 10^3/uL (0.1-0.6); Absolute Neutrophils 4.7 10^3/uL (1.4-6.5); Hematocrit 22.1 % (37.0-47.0); Hemoglobin 7.5 g/dL (12.0-16.0); Mean Corp Hgb Conc. 33.9 g/dL (33.0-37.0); Mean Corpuscular Hgb 34.7 pg (27.0-31.0); Mean Corpuscular Volume 102.3 fL (81.0-99.0); Mean Platelet Volume 11.5 fL (7.4-10.4); Nucleated Red Blood Cells % 0 %; Platelet Count 163 10^3/uL (130-400); Red Blood Cell Count 2.16 10^6/uL (4.20-5.40); Red Cell Dist. Width 15.6 % (11.5-14.5); White Blood Cell Count 6.9 10^3/uL (4.8-10.8)
--- NOTE | 2023-10-11 07:07 | W.PN.UPDATE ---
Update Note
Progress Note Update
Patient comfortable this morning and in slings. Neurovascularly she does appear intact. Chemistry still pending. Plan would be for ORIF bilateral proximal humerus fractures versus reverse total shoulder replacement for later today. She will
remain n.p.o., antibiotics on-call to operating room and consent has been signed.
[2023-10-11 07:19] LABS: ALT (SGPT) 15 U/L (0-35); AST (SGOT) 36 U/L (14-36); Albumin 2.7 g/dl (3.5-5.0); Alkaline Phosphatase 110 U/L (38-126); Blood Urea Nitrogen 2 mg/dl (7-17); Calcium 8.2 mg/dl (8.4-10.2); Carbon Dioxide 25 mmol/L (22-30); Chloride 104 mmol/L (98-107); Estimated Creatinine Clearance 80 ml/min; Glucose 101 mg/dl (70-99); Potassium 3.9 mmol/L (3.5-5.1); Sodium 132 mmol/L (135-145); Total Bilirubin 1.3 mg/dl (0.2-1.3); Total Protein 5.1 g/dl (6.3-8.2); eGFR > 60.00
--- NOTE | 2023-10-11 07:30 | CM ---
patient with bl humeral head fx,or on hold due to hyponatremia,hgb 7.9.cont iv thiamine/folate for etoh withdrawal.patient may need short term rehab post surgery.
Plan home vs short term rehab.
[2023-10-11] MEDS: MIRALAX PO (08:23)
[2023-10-11] MEDS: LUMINAL 64.7999999999999972 MG PO ×2 (08:30→21:47)
[2023-10-11] MEDS: NICODERM TRANSDERMAL 21 MG TRANSDERM (08:30)
[2023-10-11] MEDS: VITAMIN B1 100 MG PO ×2 (08:30→21:49)
[2023-10-11] MEDS: FOLVITE 1 MG PO (08:30)
--- NOTE | 2023-10-11 09:51 | W.PN.HOSP.TC ---
Today's Communication/Plan
-
for surgical intervention today
Assessment / Plan
Assessment / Plan
CT chest with IV contrast:
�� � � � � � � 1.� Comminuted displaced bilateral proximal humerus fractures
�� � � � � � � 2.� Posterior lateral right ninth and 10th subacute/partially healed rib fractures
CT head and cervical spine: No acute intracranial abnormality, no fracture or subluxation of the cervical spine
Left and right shoulder x-rays:
� � � � � � � � Displaced comminuted bilateral proximal numerous fractures associated with bilateral glenohumeral joint subluxation/dislocations

# Mechanical fall 2/2 alcohol intoxication with bilateral humeral head fractures/subacute ninth 10th right rib fractures
-Consult Ortho�Dr. Lucia mcgill
-NPO preop
-Bilateral arm slings
-Oral narcotics and IV pain meds, adjusted
-Call placed and reviewed with Dr. Pulido, she has cleared pt for surgery from renal/electrolyte aspects
#Alcohol withdrawal/alcohol abuse
-EtOH negative, last drink at 10/06 Noon
-Normally drinks 1/3-1 bottle 750 mL vodka daily
-MSAS scores reviewed and remains in acceptable range.
-IV thiamine, IV folate
-Phenobarb taper and IV ativan as needed
-Patient would benefit with alc rehab but with b/l humeral fracture will need physical rehab first.
# Acute hyponatremia
much improved
-TSH/FT4 wnl
-suspecting low solute intake vs ADH excess state with pain
-s/p Samsca Na 124-->128-->132
-Nephro help appreciated and confirmed with Dr. Pulido
# RUE swelling
-from infiltrated IV line with 3% NS infusion
unable to do US due to fracture, will do post op
#Prolonged QTc
Hypomagnesemia
-QTc 614 at admit
-repeat EKG showed improvement in QTc to 437 ms
-Tigan as needed nausea vomiting
-Avoid any QTc prolonging medication
#Leukocytosis likely secondary to fall - normalized
-CT chest negative
#Acute on chronic macrocytic anemia
-no intraperitoneal bleed on CT a/p
-no luminal blood loss/denies h/o of pud/gi bleed
Hgb 6.8-->7.9-->7.5
-1 u prbc given. Will transfuse 2nd unit
#Hypertension likely secondary to alcohol withdrawal/pain
-controlled at this point
Cardiac Risk Index 3.9%
Pt is cleared to proceed with surgery. Call placed to update orthoFreid, await call back
DVT prophylaxis -Subcu Lovenox
Full code
Anticipated Discharge: > 48 hours
Subjective/Interval History
-
Date of Service: October 11, 2023
Anxiously awaiting surgical intervention
Objective Data
-
Labs:
Laboratory Results
10/11/23
04:53
WBC 6.9
Hgb 7.5 L
Hct 22.1 L
Plt Count 163 D
Sodium 132 L
Potassium 3.9
Chloride 104
Carbon Dioxide 25
BUN 2 L
Creatinine 0.5 L
Glucose 101 H
Calcium 8.2 L
Total Bilirubin 1.3
AST 36
ALT 15
Alkaline Phosphatase 110
Vital Signs:
Vital Signs
Temp Pulse Resp BP Pulse Ox
98.3 F 105 18 129/82 98
10/11/23 07:40 10/11/23 07:40 10/11/23 07:40 10/11/23 07:40 10/11/23 07:40
I&O
10/10/23 10/11/23 10/12/23
06:59 06:59 06:59
Intake Total 1550 / 1550 1919
Balance 1550 / 1550 1919
Review of Systems
-
History Source: Patient, Physician and Coordinated Provider
Constitutional: Denies Fever
EENT: Reports No Symptoms Reported
Respiratory: Reports No Symptoms
Cardiac: Reports No Symptoms
Abdomen/GI: Reports No Symptoms
Genitourinary: Reports No Symptoms
Musculoskeletal: Reports Joint Pain, Arthralgias and Myalgias
Neuro: Reports No Symptoms
Physical Exam
-
General: Well Developed, Well Nourished and No Apparent Distress
HEENT: Normocephalic, Atraumatic and Moist Mucous Membranes
Respiratory: Clear to Auscultation; Negative Wheezes, Rales or Rhonchi
Cardiac: Regular Rhythm and S1/S2
GI: Soft, Nontender and Nondistended
Musculoskeletal: No Clubbing, No Cyanosis and No Edema
Skin: Warm and Dry
Psych: Calm
--- NOTE | 2023-10-11 11:01 | W.PN.NEPH.PH ---
Today's Communication / Plan
-
FR
ok for surg today
labs in am
Assessment/Plan
-
Impression:
Euvolemic hyponatremia
Mechanical fall due to alcohol intoxication with bilateral humeral head fractures and subacute ninth and 10th rib fracture
Alcohol withdrawal with ongoing history of alcohol abuse
Prolonged QT C
Hypomagnesemia
vit D def
Plan:
Euvolemic Hyponatremia
- urine osmolarity of 582 indicates SIADH likely potentiated from pain
low U na likely suggest low solute intake
sodium improved post samsca to 132
TSH normal
cont fluid restriction
anemia-plan for transfusion today, check fe panel
low vit D level, started D2
d/w pt and primary
ok for surg today
-
-
Date of Service: October 11, 2023
CC / HPI / ROS
-
Chief Complaint:
hyponatremia
History of Present Illness:
sodium imprving to 132 s/p samsca 10/09
BP are stable
hb low at 7.5, plan for more trasnfusion today
k normal
Review of Systems:
controlled pain bilat UE
Rt UE edema better
no n/v
Labs
-
Labs:
WBC 6.9 10^3/uL (4.8-10.8) 10/11/23 04:53
RBC 2.16 10^6/uL (4.20-5.40) L 10/11/23 04:53
Hgb 7.5 g/dL (12.0-16.0) L 10/11/23 04:53
Hct 22.1 % (37.0-47.0) L 10/11/23 04:53
Plt Count 163 10^3/uL (130-400) D 10/11/23 04:53
Sodium 132 mmol/L (135-145) L 10/11/23 04:53
Potassium 3.9 mmol/L (3.5-5.1) 10/11/23 04:53
Chloride 104 mmol/L (98-107) 10/11/23 04:53
Carbon Dioxide 25 mmol/L (22-30) 10/11/23 04:53
BUN 2 mg/dl (7-17) L 10/11/23 04:53
Creatinine 0.5 mg/dL (0.6-1.0) L 10/11/23 04:53
eGFR > 60.00 10/11/23 04:53
Glucose 101 mg/dl (70-99) H 10/11/23 04:53
Calcium 8.2 mg/dl (8.4-10.2) L 10/11/23 04:53
Phosphorus 3.5 mg/dl (2.5-4.5) 10/10/23 03:49
Albumin 2.7 g/dl (3.5-5.0) L 10/11/23 04:53
Physical Exam
-
Vital Signs:
Vital Signs
Temp Pulse Resp BP Pulse Ox
98.9 F 102 16 133/77 97
10/11/23 10:38 10/11/23 10:38 10/11/23 10:38 10/11/23 10:38 10/11/23 10:38
Cardiovascular:: Regular rate and rhythm
Respiratory:: Bilateral: CTA
Lung Excursion:: Normal
Abdomen:: Nontender and Soft
Extremity Edema:: None: Bilateral:
Garay Catheter: No
[2023-10-11 11:37] LABS: Iron 37 ug/dl (37-170)
[2023-10-11] MEDS: DILAUDID 0.25 MG IV ×3 (11:37→23:16)
[2023-10-11 11:46] LABS: Percent Saturation 15 % (20-50); Total Iron Binding Capacity 243 ug/dl (265-497)
--- NOTE | 2023-10-11 14:04 | TRANSFER ---
Patient to OR with patient transport
--- NOTE | 2023-10-11 15:54 | CM ---
patient with bl humeral head fractures,na improved to 132,monitoring qtc,for ortho surgical intervention today.await pt/ot evals.
Plan home vs short term rehab.
[2023-10-11] MEDS: LUMINAL PO (16:37)
[2023-10-11] MEDS: LOVENOX SC (19:02)
--- NOTE | 2023-10-11 19:46 | W.PN.UPDATE ---
Update Note
Progress Note Update
53F s/p right proximal humerus ORIF and left shoulder hemiarthroplasty with Dr. Myers 10/11/2023
-postop ancef x3 q8 as ordered
-fay cath p
-diet placed, advance as tolerated
-pain per primary
-DVT ppx per primary, recommend 30 day total
-OT consult, DC planning
LUE: acoustic sensor operator immobilizer with bump to LUE; NWB; may perform wrist and hand ROM, no elbow or shoulder ROM.
RUE: sling, may rest from brace when in bed; no shoulder ROM other than pendulums when tolerated; pay perform elbow, wrist, and hand ROM.
--- NOTE | 2023-10-11 21:30 | PTCARENOTE ---
Addendum entered by Lilia Cisneros RN 10/11/23 23:55:
First note entered in error
Pt arrived to 2S via bed from PACU. VSS. Pt AXO3. Drowsy but arousable to verbal stimuli. In NAD. Even and unlabored breathing on 1L NC. Questions and concerns of family members answered. Bed in lowest position, call dan within reach, side rails in
place. See worklist for Neuro checks and assessment.
Original Note:
Pt arrived to 2s via bed from PACE. VSS.
[2023-10-11] MEDS: ANCEF 5 IV (21:47)
[2023-10-12] VITALS (7 sets, daily range): BP systolic 118–179; BP diastolic 64–98
[2023-10-12] MEDS: ROXICODONE 10 MG PO ×5 (01:52→20:02)
[2023-10-12] MEDS: DILAUDID 0.5 MG IV ×3 (03:09→22:04)
[2023-10-12] MEDS: ANCEF 5 IV (06:00)
[2023-10-12 06:32] LABS: % Basophils 0.1 % (0-2); % Immature Granulocytes 0.6 % (0-0.5); % Lymphocytes 7.1 % (20.5-51.1); % Monocytes 11.8 % (1.7-9.3); % Neutrophils 80.4 % (42.2-75.2); Absolute Immature Granulocytes 0.1 10^3/uL (0-0.05); Absolute Lymphocytes 0.7 10^3/uL (1.2-3.4); Absolute Monocytes 1.2 10^3/uL (0.1-0.6); Hematocrit 23.5 % (37.0-47.0); Hemoglobin 7.8 g/dL (12.0-16.0); Mean Corp Hgb Conc. 33.2 g/dL (33.0-37.0); Mean Corpuscular Hgb 33.3 pg (27.0-31.0); Mean Corpuscular Volume 100.4 fL (81.0-99.0); Mean Platelet Volume 11.1 fL (7.4-10.4); Nucleated Red Blood Cells % 0 %; Platelet Count 201 10^3/uL (130-400); Red Blood Cell Count 2.34 10^6/uL (4.20-5.40); Red Cell Dist. Width 18.3 % (11.5-14.5); White Blood Cell Count 9.9 10^3/uL (4.8-10.8)
[2023-10-12 06:47] LABS: ALT (SGPT) 14 U/L (0-35); AST (SGOT) 39 U/L (14-36); Albumin 2.7 g/dl (3.5-5.0); Alkaline Phosphatase 107 U/L (38-126); Blood Urea Nitrogen 6 mg/dl (7-17); Calcium 7.7 mg/dl (8.4-10.2); Carbon Dioxide 24 mmol/L (22-30); Chloride 95 mmol/L (98-107); Estimated Creatinine Clearance 80 ml/min; Glucose 104 mg/dl (70-99); Potassium 4.3 mmol/L (3.5-5.1); Sodium 128 mmol/L (135-145); Total Bilirubin 0.9 mg/dl (0.2-1.3); Total Protein 5.1 g/dl (6.3-8.2); eGFR > 60.00
--- NOTE | 2023-10-12 07:20 | W.PN.ORTHO ---
Today's Communication / Plan
-
53F s/p right proximal humerus ORIF and left shoulder hemiarthroplasty with Dr. Myers 10/11/2023
-postop ancef x3 q8 as ordered
-fay cath placed, remove POD1 per protocol
-diet placed, advance as tolerated
-pain per primary
-DVT ppx per primary, recommend 30 day total
-OT consult, DC planning
LUE: time study analyst immobilizer with bump to LUE; NWB; may perform wrist and hand ROM, no elbow or shoulder ROM.
RUE: sling, may rest from brace when in bed; no shoulder ROM other than pendulums when tolerated; pay perform elbow, wrist, and hand ROM.�
Assessment
.
Distal Motor Intact: Yes
Dressing:
Clean, dry and intact.
Plan
.
Surgery / Date: 11 October 2023
Activity:
Out of bed.
PT/OT
Subjective
.
.:
Patient resting. Difficulty with pain control
Vital Signs and Labs
.
Vital Signs and Labs:
Lab Results
10/12/23 05:05
10/12/23 05:05
Temp Pulse Resp BP Pulse Ox
97.5 F 112 18 179/97 96
10/12/23 07:15 10/12/23 07:15 10/12/23 07:15 10/12/23 07:15 10/12/23 07:15
PT 12.6 Sec (11.4-14.6) 10/07/23 20:40
INR 0.96 10/07/23 20:40
Physical Exam
-
Dressings intact to bilateral upper extremities with mild strikethrough but not permeating borders
[2023-10-12] MEDS: DILAUDID 0.25 MG IV (07:57)
[2023-10-12] MEDS: FOLVITE 1 MG PO (08:01)
[2023-10-12] MEDS: LUMINAL 32.3999999999999986 MG PO ×3 (08:01→22:04)
[2023-10-12] MEDS: NICODERM TRANSDERMAL 21 MG TRANSDERM (08:01)
[2023-10-12] MEDS: VITAMIN B1 100 MG PO ×2 (08:01→20:02)
[2023-10-12] MEDS: MIRALAX PO (08:02)
[2023-10-12] MEDS: PROCARDIA XL (EXTENDED RELEASE) 30 MG PO ×2 (10:24→20:02)
--- NOTE | 2023-10-12 11:48 | W.PN.NEPH.PH ---
Today's Communication / Plan
-
add back FR
follow bmp
Assessment/Plan
-
Impression:
Euvolemic hyponatremia
Mechanical fall due to alcohol intoxication with bilateral humeral head fractures and subacute ninth and 10th rib fracture
Alcohol withdrawal with ongoing history of alcohol abuse
Prolonged QT C
Hypomagnesemia
vit D def
Plan:
Euvolemic Hyponatremia
- urine osmolarity of 582 indicates SIADH likely potentiated from pain
low U na likely suggest low solute intake
sodium down again to 128
will add back 48oz fluid restriction
TSH normal
anemia-had transfusion yesterday
low vit D level, started D2
d/w pt and primary
-
-
Date of Service: October 12, 2023
CC / HPI / ROS
-
Chief Complaint:
hyponatremia
History of Present Illness:
sodium imprving to 128 s/p samsca 10/09
BP are stable
hb low at 7.5, plan for more trasnfusion today
k normal
s/p shoulder s
Review of Systems:
controlled pain bilat UE
Rt UE edema better
no n/v
Labs
-
Labs:
WBC 9.9 10^3/uL (4.8-10.8) 10/12/23 05:05
RBC 2.34 10^6/uL (4.20-5.40) L 10/12/23 05:05
Hgb 7.8 g/dL (12.0-16.0) L 10/12/23 05:05
Hct 23.5 % (37.0-47.0) L 10/12/23 05:05
Plt Count 201 10^3/uL (130-400) D 10/12/23 05:05
Sodium 128 mmol/L (135-145) L 10/12/23 05:05
Potassium 4.3 mmol/L (3.5-5.1) 10/12/23 05:05
Chloride 95 mmol/L (98-107) L 10/12/23 05:05
Carbon Dioxide 24 mmol/L (22-30) 10/12/23 05:05
BUN 6 mg/dl (7-17) L 10/12/23 05:05
Creatinine 0.5 mg/dL (0.6-1.0) L 10/12/23 05:05
eGFR > 60.00 10/12/23 05:05
Glucose 104 mg/dl (70-99) H 10/12/23 05:05
Calcium 7.7 mg/dl (8.4-10.2) L 10/12/23 05:05
Phosphorus 3.5 mg/dl (2.5-4.5) 10/10/23 03:49
Albumin 2.7 g/dl (3.5-5.0) L 10/12/23 05:05
Physical Exam
-
Vital Signs:
Vital Signs
Temp Pulse Resp BP Pulse Ox
97.5 F 112 18 158/98 96
10/12/23 07:15 10/12/23 07:15 10/12/23 07:15 10/12/23 10:23 10/12/23 07:15
Cardiovascular:: Regular rate and rhythm
Respiratory:: Bilateral: CTA
Lung Excursion:: Normal
Abdomen:: Nontender and Soft
Extremity Edema:: None: Bilateral:
--- NOTE | 2023-10-12 13:59 | W.PN.HOSP.TC ---
Today's Communication/Plan
-
increase breakthrough Dilaudid dose
continue oral oxycodone
start procardia
pt/ot as tolerated
Assessment / Plan
Assessment / Plan
CT chest with IV contrast:
�� � � � � � � 1.� Comminuted displaced bilateral proximal humerus fractures
�� � � � � � � 2.� Posterior lateral right ninth and 10th subacute/partially healed rib fractures
CT head and cervical spine:
No acute intracranial abnormality, no fracture or subluxation of the cervical spine
Left and right shoulder x-rays:
� � � � � � � � Displaced comminuted bilateral proximal numerous fractures associated with bilateral glenohumeral joint subluxation/dislocations

# Mechanical fall 2/2 alcohol intoxication with bilateral humeral head fractures
subacute ninth 10th right rib fractures
-Bilateral arm slings
-Oral narcotics and IV pain meds, adjusted
-Call placed and reviewed with Dr. Pulido, she has cleared pt for surgery from renal/electrolyte aspects
-s/p bilateral shoulder surg on 10/10
#Alcohol withdrawal -resolved
Alcohol abuse
-EtOH negative, last drink at 10/06 Noon
-Normally drinks 1/3-1 bottle 750 mL vodka daily
-Patient would benefit with alc rehab but with b/l humeral fracture will need physical rehab first.
-Finishing course of phenobarb.
# Acute hyponatremia
much improved
-TSH/FT4 wnl
-suspecting low solute intake vs ADH excess state with pain
-s/p Samsca Na 124-->128-->132 --> 128
-Patient started back on fluid restriction
# RUE swelling
-from infiltrated IV line with 3% NS infusion
-unable to do US due to fracture - arms needs to be extended outward
#Prolonged QTc
Hypomagnesemia
-QTc 614 at admit
-repeat EKG showed improvement in QTc to 437 ms
-Tigan as needed nausea vomiting
-Avoid any QTc prolonging medication
#Leukocytosis likely secondary to fall - normalized
-CT chest negative
#Acute on chronic macrocytic anemia
-no intraperitoneal bleed on CT a/p
-no luminal blood loss/denies h/o of pud/gi bleed
-s/p 2 u PRBC this admit.
#Essential Hypertension
-controlled at this point
DVT prophylaxis -Subcu Lovenox
Full code
Anticipated Discharge: Within 24 hours
Subjective/Interval History
-
Date of Service: October 12, 2023
Patient having significant pain and tearful from pain
Had difficult time working with physical therapy today
Objective Data
-
Labs:
Laboratory Results
10/12/23
05:05
WBC 9.9
Hgb 7.8 L
Hct 23.5 L
Plt Count 201 D
Sodium 128 L
Potassium 4.3
Chloride 95 L
Carbon Dioxide 24
BUN 6 L
Creatinine 0.5 L
Glucose 104 H
Calcium 7.7 L
Total Bilirubin 0.9
AST 39 H
ALT 14
Alkaline Phosphatase 107
Vital Signs:
Vital Signs
Temp Pulse Resp BP Pulse Ox
98.5 F 114 19 119/64 91
10/12/23 12:00 10/12/23 12:00 10/12/23 12:00 10/12/23 12:00 10/12/23 12:00
I&O
10/11/23 10/12/23 10/13/23
06:59 06:59 06:59
Intake Total 1919
Output Total 875 / 875
Balance 1919 1035 / 1035
Review of Systems
-
All other systems: Reviewed and negative
Physical Exam
-
General: No Apparent Distress
HEENT: Negative Oxygen
GI: Soft, Nontender and Nondistended
Musculoskeletal: Edema, Right Upper Extrem, Edema, Left Upper Extrem and Other (Bilateral anterior shoulder dressing )
Neuro: Awake, Alert and Oriented
Psych: Calm
--- NOTE | 2023-10-12 16:09 | CM ---
met with patient and at bedside.patient with bl humeral head fxs is sp orhto surgery 10/10.lue with nwb,bing with sling,etoh w/d,ancef post op,has severe pain.spoke with patient and about snf rehab after speaking with
therapist.krysta works and cannot care for his ,they are agreeable to snf rehab. had no requests.referrals sent.
plan:discharge to snf when stable for rehab.
[2023-10-12] MEDS: LOVENOX 40 MG SC (17:16)
[2023-10-13] VITALS (7 sets, daily range): BP systolic 126–162; BP diastolic 75–92; PULSE 101
[2023-10-13] MEDS: ROXICODONE 10 MG PO ×5 (00:02→21:49)
[2023-10-13] MEDS: DILAUDID 0.5 MG IV ×3 (03:15→23:57)
--- NOTE | 2023-10-13 07:33 | W.PN.ORTHO ---
Today's Communication / Plan
-
Sling bilateral shoulders
Nonweightbearing bilateral upper extremities
Ice and gentle range of motion fingers and elbow
PT/OT
Lovenox for DVT prophylaxis
Follow-up with orthopedics 2 weeks postop to check her progress
Assessment
.
Distal Motor Intact: Yes
Dressing:
Clean, dry and intact.
Plan
.
Surgery / Date: ORIF R humerus/L shoulder joao 10/10 Ritting
DVT Prophylaxis: Lovenox
Activity:
Out of bed.
PT/OT
Discharge Plan: SNF
Subjective
.
.:
Patient resting comfortably.
Vital Signs and Labs
.
Vital Signs and Labs:
Temp Pulse Resp BP Pulse Ox
98.4 F 111 18 136/77 93
10/13/23 03:30 10/13/23 03:30 10/13/23 03:30 10/13/23 03:30 10/13/23 03:30
PT 12.6 Sec (11.4-14.6) 10/07/23 20:40
INR 0.96 10/07/23 20:40
--- NOTE | 2023-10-13 08:00 | W.PN.HOSP.TC ---
Today's Communication/Plan
-
see note
Assessment / Plan
Assessment / Plan
CT chest with IV contrast:
�� � � � � � � 1.� Comminuted displaced bilateral proximal humerus fractures
�� � � � � � � 2.� Posterior lateral right ninth and 10th subacute/partially healed rib fractures
CT head and cervical spine:
No acute intracranial abnormality, no fracture or subluxation of the cervical spine
Left and right shoulder x-rays:
� � � � � � � � Displaced comminuted bilateral proximal numerous fractures associated with bilateral glenohumeral joint subluxation/dislocations

# Mechanical fall 2/2 alcohol intoxication with bilateral humeral head fractures
subacute ninth 10th right rib fractures
-Bilateral arm slings
-Call placed and reviewed with Dr. Pulido, she has cleared pt for surgery from renal/electrolyte aspects
-s/p bilateral shoulder surg on 10/10
-had significant pain yesterday and was tearful, much beter today. continue current regimen
-last BM on 10/09 - provide dose of laxative
-will need rehab placement earliest sunday
-F/u with ortho in office in 2 weeks
#Alcohol withdrawal -resolved
Alcohol abuse
-EtOH negative, last drink at 10/06 Noon
-Normally drinks 1/3-1 bottle 750 mL vodka daily
-Patient would benefit with alc rehab but with b/l humeral fracture will need physical rehab first.
-Finishing course of phenobarb - last day today. stop MSAS/ativan
# Acute hyponatremia
much improved
-TSH/FT4 wnl
-suspecting low solute intake vs ADH excess state with pain
-s/p Samsca Na 124-->128-->132 --> 128 - Pending AM lab today
-Patient started back on fluid restriction
# RUE swelling
-from infiltrated IV line with 3% NS infusion
-unable to do US due to fracture - arms needs to be extended outward
#Prolonged QTc
Hypomagnesemia
-QTc 614 at admit
-repeat EKG showed improvement in QTc to 437 ms
-Tigan as needed nausea vomiting
-Avoid any QTc prolonging medication
#Leukocytosis likely secondary to fall - normalized
-CT chest negative
#Acute on chronic macrocytic anemia
-no intraperitoneal bleed on CT a/p
-no luminal blood loss/denies h/o of pud/gi bleed
-s/p 2 u PRBC this admit.
#Essential Hypertension
-Nifedipine changed to toprol xl for HR control
DVT prophylaxis -Subcu Lovenox
Full code
Anticipated Discharge: > 48 hours
Subjective/Interval History
-
Date of Service: October 13, 2023
resting comfortably in bed
both arms in slings
no significant pain problems
Objective Data
-
Labs:
Laboratory Results
10/13/23
06:00
WBC Pending
Hgb Pending
Hct Pending
Plt Count Pending
Sodium Pending
Potassium Pending
Chloride Pending
Carbon Dioxide Pending
BUN Pending
Creatinine Pending
Glucose Pending
Calcium Pending
Vital Signs:
Vital Signs
Temp Pulse Resp BP Pulse Ox
98.4 F 111 18 136/77 93
10/13/23 03:30 10/13/23 03:30 10/13/23 03:30 10/13/23 03:30 10/13/23 03:30
I&O
10/12/23 10/13/23 10/14/23
06:59 06:59 06:59
Intake Total 1909 720 / 720
Output Total 875 / 875 350 / 350
Balance 1035 / 1035 370 / 370
Review of Systems
-
Respiratory: Reports Cough
Cardiac: Reports No Symptoms
Abdomen/GI: Reports No Symptoms
Physical Exam
-
General: No Apparent Distress
HEENT: Negative Oxygen
Respiratory: Clear to Auscultation
Cardiac: Regular Rhythm, S1/S2 and Tachycardic
GI: Soft, Nontender and Nondistended
Musculoskeletal: Edema, Right Upper Extrem, Edema, Left Upper Extrem and Other (Bilateral anterior shoulder dressing - dried up blood, both arm in sling)
Neuro: Awake, Alert and Oriented
Psych: Calm
[2023-10-13 08:37] LABS: Hematocrit 22.4 % (37.0-47.0); Hemoglobin 7.8 g/dL (12.0-16.0); Mean Corp Hgb Conc. 34.8 g/dL (33.0-37.0); Mean Corpuscular Hgb 33.8 pg (27.0-31.0); Mean Platelet Volume 11.1 fL (7.4-10.4); Platelet Count 211 10^3/uL (130-400); Red Blood Cell Count 2.31 10^6/uL (4.20-5.40); Red Cell Dist. Width 17.1 % (11.5-14.5); White Blood Cell Count 7.8 10^3/uL (4.8-10.8)
[2023-10-13] MEDS: MIRALAX PO (08:43)
[2023-10-13] MEDS: VITAMIN B1 100 MG PO ×2 (08:43→20:38)
[2023-10-13] MEDS: FOLVITE 1 MG PO (08:44)
[2023-10-13] MEDS: TOPROL XL 25 MG PO ×2 (08:44→20:38)
[2023-10-13] MEDS: LUMINAL 32.3999999999999986 MG PO ×3 (08:44→22:43)
[2023-10-13] MEDS: NICODERM TRANSDERMAL 21 MG TRANSDERM (08:45)
[2023-10-13 09:17] LABS: Blood Urea Nitrogen 4 mg/dl (7-17); Carbon Dioxide 23 mmol/L (22-30); Chloride 97 mmol/L (98-107); Estimated Creatinine Clearance 80 ml/min; Glucose 90 mg/dl (70-99); Sodium 125 mmol/L (135-145); eGFR > 60.00
--- NOTE | 2023-10-13 12:30 | W.PN.NEPH.PH ---
Today's Communication / Plan
-
samsca 30mg po times one
Assessment/Plan
-
Impression:
Euvolemic hyponatremia
Mechanical fall due to alcohol intoxication with bilateral humeral head fractures and subacute ninth and 10th rib fracture
Alcohol withdrawal with ongoing history of alcohol abuse
Prolonged QT C
Hypomagnesemia
vit D def
Plan:
Euvolemic Hyponatremia
- urine osmolarity of 582 indicates SIADH likely potentiated from pain
low U na likely suggest low solute intake
sodium down again to 125, i will redose samsca
continue 48oz fluid restriction
TSH normal
anemia-had transfusion yesterday
low vit D level, started D2
d/w pt and primary
-
-
Date of Service: October 13, 2023
CC / HPI / ROS
-
Chief Complaint:
hyponatremia
History of Present Illness:
sodium imprving to 125 s/p samsca 10/09
BP are stable
hb low at 7.8
k normal
s/p shoulder s
Review of Systems:
controlled pain bilat UE
Rt UE edema better
no n/v
Labs
-
Labs:
WBC 7.8 10^3/uL (4.8-10.8) 10/13/23 08:06
RBC 2.31 10^6/uL (4.20-5.40) L 10/13/23 08:06
Hgb 7.8 g/dL (12.0-16.0) L 10/13/23 08:06
Hct 22.4 % (37.0-47.0) L 10/13/23 08:06
Plt Count 211 10^3/uL (130-400) 10/13/23 08:06
Sodium 125 mmol/L (135-145) L 10/13/23 08:06
Potassium 4.0 mmol/L (3.5-5.1) 10/13/23 08:06
Chloride 97 mmol/L (98-107) L 10/13/23 08:06
Carbon Dioxide 23 mmol/L (22-30) 10/13/23 08:06
BUN 4 mg/dl (7-17) L 10/13/23 08:06
Creatinine 0.4 mg/dL (0.6-1.0) L 10/13/23 08:06
eGFR > 60.00 10/13/23 08:06
Glucose 90 mg/dl (70-99) 10/13/23 08:06
Calcium 8.0 mg/dl (8.4-10.2) L 10/13/23 08:06
Phosphorus 3.5 mg/dl (2.5-4.5) 10/10/23 03:49
Albumin 2.7 g/dl (3.5-5.0) L 10/12/23 05:05
Physical Exam
-
Vital Signs:
Vital Signs
Temp Pulse Resp BP Pulse Ox
98.5 F 106 18 153/80 93
10/13/23 07:01 10/13/23 08:44 10/13/23 07:01 10/13/23 08:44 10/13/23 07:01
Cardiovascular:: Regular rate and rhythm
Respiratory:: Bilateral: Coarse
Lung Excursion:: Normal
Abdomen:: Nontender and Soft
Bowel Sounds:: Normal
Extremity Edema:: None: Bilateral:
Garay Catheter: No
[2023-10-13] MEDS: SAMSCA 15 MG PO (12:57)
[2023-10-13] MEDS: LOVENOX 40 MG SC (17:05)
[2023-10-14] VITALS (9 sets, daily range): BP systolic 106–172; BP diastolic 63–99
[2023-10-14] MEDS: ROXICODONE 10 MG PO ×5 (01:45→23:04)
[2023-10-14 06:38] LABS: Hematocrit 27.4 % (37.0-47.0); Hemoglobin 9.2 g/dL (12.0-16.0); Mean Corp Hgb Conc. 33.6 g/dL (33.0-37.0); Mean Corpuscular Volume 98.2 fL (81.0-99.0); Mean Platelet Volume 11.3 fL (7.4-10.4); Platelet Count 245 10^3/uL (130-400); Red Blood Cell Count 2.79 10^6/uL (4.20-5.40); Red Cell Dist. Width 16.7 % (11.5-14.5); White Blood Cell Count 7.2 10^3/uL (4.8-10.8)
[2023-10-14 06:57] LABS: Blood Urea Nitrogen 3 mg/dl (7-17); Calcium 8.4 mg/dl (8.4-10.2); Carbon Dioxide 23 mmol/L (22-30); Chloride 102 mmol/L (98-107); Estimated Creatinine Clearance 80 ml/min; Glucose 97 mg/dl (70-99); Potassium 3.9 mmol/L (3.5-5.1); Sodium 133 mmol/L (135-145); eGFR > 60.00
[2023-10-14] MEDS: TOPROL XL 25 MG PO (08:17)
[2023-10-14] MEDS: VITAMIN B1 100 MG PO ×2 (08:18→20:31)
[2023-10-14] MEDS: NICODERM TRANSDERMAL 21 MG TRANSDERM (08:18)
[2023-10-14] MEDS: FOLVITE 1 MG PO (08:18)
[2023-10-14] MEDS: DILAUDID 0.5 MG IV (08:19)
--- NOTE | 2023-10-14 08:25 | W.PN.ORTHO ---
Today's Communication / Plan
-
PT/OT
Aspirin DVT prophylaxis
Sling right shoulder and abductor pillow sling left shoulder
Nonweightbearing bilateral upper extremities
Skin clip removal [address] Myers office
Orthopedics to sign off for now
Assessment
.
Distal Motor Intact: Yes
Dressing:
Clean, dry and intact.
Plan
.
Surgery / Date: ORIF R humerus/L shoulder joao 10/10 Lucia
DVT Prophylaxis: Aspirin
Activity:
Out of bed.
PT/OT
Discharge Plan: SNF
Subjective
.
.:
Patient resting comfortably.
Vital Signs and Labs
.
Vital Signs and Labs:
Lab Results
10/14/23 06:07
10/14/23 06:07
Temp Pulse Resp BP Pulse Ox
98.7 F 103 18 172/99 97
10/14/23 07:50 10/14/23 08:17 10/14/23 07:50 10/14/23 08:17 10/14/23 07:50
PT 12.6 Sec (11.4-14.6) 10/07/23 20:40
INR 0.96 10/07/23 20:40
[2023-10-14] MEDS: MIRALAX PO (08:38)
--- NOTE | 2023-10-14 11:43 | W.PN.NEPH.PH ---
Addendum entered and electronically signed by Alexey Daugherty, 10/14/23 11:47:
Lasix will be administered 10 mg every other day
Original Note:
Today's Communication / Plan
-
Observe on fluid restriction
Add Lasix every other day
Assessment/Plan
-
Impression:
Euvolemic hyponatremia
Mechanical fall due to alcohol intoxication with bilateral humeral head fractures and subacute ninth and 10th rib fracture
Alcohol withdrawal with ongoing history of alcohol abuse
Prolonged QT C
Hypomagnesemia
vit D def
Plan:
Euvolemic Hyponatremia
- urine osmolarity of 582 indicates SIADH likely potentiated from pain
low U na likely suggest low solute intake
Sodium up from 1 25-1 33 following Samsca administration on 10/13/2023
continue 48oz fluid restriction, will add Lasix 20 mg every other day
TSH normal
anemia improved-had transfusion 10/11
-
-
Date of Service: October 14, 2023
CC / HPI / ROS
-
Chief Complaint:
hyponatremia
History of Present Illness:
sodium imporving to 133 s/p samsca 10/12
BP are stable
Hemoglobin improved following transfusion
k normal
Shoulder pain improved
Review of Systems:
controlled pain bilateral shoulder pain
Rt UE edema better
no n/v
Labs
-
Labs:
WBC 7.2 10^3/uL (4.8-10.8) 10/14/23 06:07
RBC 2.79 10^6/uL (4.20-5.40) L 10/14/23 06:07
Hgb 9.2 g/dL (12.0-16.0) L 10/14/23 06:07
Hct 27.4 % (37.0-47.0) L 10/14/23 06:07
Plt Count 245 10^3/uL (130-400) 10/14/23 06:07
Sodium 133 mmol/L (135-145) L D 10/14/23 06:07
Potassium 3.9 mmol/L (3.5-5.1) 10/14/23 06:07
Chloride 102 mmol/L (98-107) 10/14/23 06:07
Carbon Dioxide 23 mmol/L (22-30) 10/14/23 06:07
BUN 3 mg/dl (7-17) L 10/14/23 06:07
Creatinine 0.4 mg/dL (0.6-1.0) L 10/14/23 06:07
eGFR > 60.00 10/14/23 06:07
Glucose 97 mg/dl (70-99) 10/14/23 06:07
Calcium 8.4 mg/dl (8.4-10.2) 10/14/23 06:07
Phosphorus 3.5 mg/dl (2.5-4.5) 10/10/23 03:49
Albumin 2.7 g/dl (3.5-5.0) L 10/12/23 05:05
Physical Exam
-
Vital Signs:
Vital Signs
Temp Pulse Resp BP Pulse Ox
98.7 F 91 18 168/86 97
10/14/23 07:50 10/14/23 10:13 10/14/23 10:13 10/14/23 10:13 10/14/23 07:50
Cardiovascular:: Regular rate and rhythm
Respiratory:: Bilateral: CTA
Lung Excursion:: Normal
Abdomen:: Nontender and Soft
Bowel Sounds:: Normal
Extremity Edema:: None: Bilateral:
Garay Catheter: No
--- NOTE | 2023-10-14 11:53 | W.PN.HOSP.TC ---
Addendum entered and electronically signed by Salbador Reynolds MD 10/14/23 12:08:
Recheck BP improved
wont start losartan
toprol xl from [facility]
Original Note:
Today's Communication/Plan
-
increase BP medication
PRN Hydralazine for sbp > 160
f/u Na level
pending rehab placement
Assessment / Plan
Assessment / Plan
CT chest with IV contrast:
�� � � � � � � 1.� Comminuted displaced bilateral proximal humerus fractures
�� � � � � � � 2.� Posterior lateral right ninth and 10th subacute/partially healed rib fractures
CT head and cervical spine:
No acute intracranial abnormality, no fracture or subluxation of the cervical spine
Left and right shoulder x-rays:
� � � � � � � � Displaced comminuted bilateral proximal numerous fractures associated with bilateral glenohumeral joint subluxation/dislocations

# Mechanical fall 2/2 alcohol intoxication with bilateral humeral head fractures
subacute ninth 10th right rib fractures
-Bilateral arm slings
-Call placed and reviewed with Dr. Pulido, she has cleared pt for surgery from renal/electrolyte aspects
-s/p bilateral shoulder surg on 10/10
-post op day 1 had significant pain, much better now
-last BM on 10/09 - provide dose of laxative
-will need rehab placement earliest sunday
-F/u with ortho in office in 2 weeks
#Alcohol withdrawal -resolved
Alcohol abuse
-EtOH negative, last drink at 10/06 Noon
-Normally drinks 1/3-1 bottle 750 mL vodka daily
-Patient would benefit with alc rehab but with b/l humeral fracture will need physical rehab first.
-Finished course of phenobarb
# Acute hyponatremia
much improved
-TSH/FT4 wnl
-suspecting low solute intake vs ADH excess state with pain
-s/p Samsca Na 124-->128-->132 --> 128 > 125
-Patient started back on fluid restriction
-Required repeat dose of samsca on 10/12
# RUE swelling
-from infiltrated IV line with 3% NS infusion
-unable to do US due to fracture - arms needs to be extended outward
#Prolonged QTc - resolved
Hypomagnesemia
-QTc 614 at admit
-repeat EKG showed improvement in QTc to 437 ms
-Tigan as needed nausea vomiting
-Avoid any QTc prolonging medication
#Leukocytosis likely secondary to fall - normalized
-CT chest negative
#Acute on chronic macrocytic anemia
-no intraperitoneal bleed on CT a/p
-no luminal blood loss/denies h/o of pud/gi bleed
-s/p 2 u PRBC this admit.
#Essential Hypertension
HTN urgency
-increased toprol xl dose to 50mg/bid
-adding losartan 25mg/d
-PRN hydralazine for sbp > 160
DVT prophylaxis -Subcu Lovenox
Full code
Anticipated Discharge: Within 24 hours
Subjective/Interval History
-
Date of Service: October 14, 2023
No new complaints overnight
Sitting comfortably in chair
Objective Data
-
Labs:
Laboratory Results
10/14/23
06:07
WBC 7.2
Hgb 9.2 L
Hct 27.4 L
Plt Count 245
Sodium 133 L D
Potassium 3.9
Chloride 102
Carbon Dioxide 23
BUN 3 L
Creatinine 0.4 L
Glucose 97
Calcium 8.4
Vital Signs:
Vital Signs
Temp Pulse Resp BP Pulse Ox
98.7 F 91 18 168/86 97
10/14/23 07:50 10/14/23 10:13 10/14/23 10:13 10/14/23 10:13 10/14/23 07:50
I&O
10/13/23 10/14/23 10/15/23
06:59 06:59 06:59
Intake Total 720 / 720 1300 / 1300
Output Total 350 / 350 4200 / 4200 225 / 225
Balance 370 / 370 -2900 / -2900 -225 / -225
Review of Systems
-
Respiratory: Reports No Symptoms
Cardiac: Reports No Symptoms
Abdomen/GI: Reports No Symptoms
Physical Exam
-
General: No Apparent Distress
HEENT: Negative Oxygen
Respiratory: Clear to Auscultation
Cardiac: Regular Rhythm, S1/S2 and Tachycardic
GI: Soft, Nontender and Nondistended
Musculoskeletal: Edema, Right Upper Extrem, Edema, Left Upper Extrem and Other (Bilateral anterior shoulder dressing - dried up blood, both arm in sling)
Neuro: Awake, Alert and Oriented
Psych: Calm
[2023-10-14] MEDS: LASIX 10 MG PO (12:15)
[2023-10-14] MEDS: LOVENOX 40 MG SC (17:28)
[2023-10-14] MEDS: TOPROL XL 50 MG PO (20:30)
[2023-10-15 03:12] VITALS: BP 137/83
[2023-10-15 05:17] LABS: Hematocrit 26.2 % (37.0-47.0); Hemoglobin 8.9 g/dL (12.0-16.0); Mean Corpuscular Hgb 33.6 pg (27.0-31.0); Mean Corpuscular Volume 98.9 fL (81.0-99.0); Mean Platelet Volume 10.5 fL (7.4-10.4); Platelet Count 331 10^3/uL (130-400); Red Blood Cell Count 2.65 10^6/uL (4.20-5.40); Red Cell Dist. Width 16.8 % (11.5-14.5); White Blood Cell Count 8.9 10^3/uL (4.8-10.8)
[2023-10-15 05:40] LABS: Blood Urea Nitrogen 5 mg/dl (7-17); Calcium 8.5 mg/dl (8.4-10.2); Carbon Dioxide 25 mmol/L (22-30); Chloride 100 mmol/L (98-107); Estimated Creatinine Clearance 80 ml/min; Glucose 97 mg/dl (70-99); Potassium 3.5 mmol/L (3.5-5.1); Sodium 128 mmol/L (135-145); eGFR > 60.00
--- NOTE | 2023-10-15 06:35 | PTCARENOTE ---
TT to house provider regarding Na of 128 - no new orders noted.
[2023-10-15 07:30] VITALS: BP 126/83
[2023-10-15] MEDS: FOLVITE 1 MG PO (09:03)
[2023-10-15] MEDS: TOPROL XL 50 MG PO ×2 (09:03→20:08)
[2023-10-15] MEDS: VITAMIN B1 100 MG PO ×2 (09:03→20:05)
[2023-10-15] MEDS: NICODERM TRANSDERMAL 21 MG TRANSDERM (09:03)
[2023-10-15] MEDS: MIRALAX PO (09:05)
[2023-10-15] MEDS: ROXICODONE 10 MG PO ×3 (10:11→20:14)
--- NOTE | 2023-10-15 10:57 | W.PN.HOSP.TC ---
Today's Communication/Plan
-
trend bmp
samsca again today
Await placement
Assessment / Plan
Assessment / Plan
CT chest with IV contrast:
�� � � � � � � 1.� Comminuted displaced bilateral proximal humerus fractures
�� � � � � � � 2.� Posterior lateral right ninth and 10th subacute/partially healed rib fractures
CT head and cervical spine:
No acute intracranial abnormality, no fracture or subluxation of the cervical spine
Left and right shoulder x-rays:
� � � � � � � � Displaced comminuted bilateral proximal numerous fractures associated with bilateral glenohumeral joint subluxation/dislocations

# Mechanical fall 2/2 alcohol intoxication with bilateral humeral head fractures
subacute ninth 10th right rib fractures
-Bilateral arm slings
-Call placed and reviewed with Dr. Pulido, she has cleared pt for surgery from renal/electrolyte aspects
-s/p bilateral shoulder surg on 10/10
-post op day 1 had significant pain, much better now
-last BM on 10/09 - provide dose of laxative
-will need rehab placement earliest sunday. [facility] b/l UE.
-F/u with ortho in office in 2 weeks
#Alcohol withdrawal -resolved
Alcohol abuse
-EtOH negative, last drink at 10/06 Noon
-Normally drinks 1/3-1 bottle 750 mL vodka daily
-Patient would benefit with alc rehab but with b/l humeral fracture will need physical rehab first.
-Finished course of phenobarb
# Acute hyponatremia
much improved
-TSH/FT4 wnl
-suspecting low solute intake vs ADH excess state with pain
-Plan for repeat dose of samsca today.
-Patient started back on fluid restriction
-Na downtrended to 128.
-started on lasix q48h
# RUE swelling
-from infiltrated IV line with 3% NS infusion
-unable to do US due to fracture - arms needs to be extended outward
#Prolonged QTc - resolved
Hypomagnesemia
-QTc 614 at admit
-repeat EKG showed improvement in QTc to 437 ms
-Tigan as needed nausea vomiting
-Avoid any QTc prolonging medication
#Leukocytosis likely secondary to fall - normalized
-CT chest negative
#Acute on chronic macrocytic anemia
-no intraperitoneal bleed on CT a/p
-no luminal blood loss/denies h/o of pud/gi bleed
-s/p 2 u PRBC this admit.
#Essential Hypertension
HTN urgency
-increased toprol xl dose to 50mg/bid
-adding losartan 25mg/d
-PRN hydralazine for sbp > 160
-BP improved to 126/83
DVT prophylaxis -Subcu Lovenox
Full code
PT/OT
Dispo-SNF.
Anticipated Discharge: Within 24 hours
Subjective/Interval History
-
Date of Service: October 15, 2023
tolerating diet
pain is intermittently uncontrolled-alleviates with pain meds
tolerating diet
Objective Data
-
Labs:
Laboratory Results
10/15/23
05:09
WBC 8.9
Hgb 8.9 L
Hct 26.2 L
Plt Count 331 D
Sodium 128 L
Potassium 3.5
Chloride 100
Carbon Dioxide 25
BUN 5 L
Creatinine 0.5 L
Glucose 97
Calcium 8.5
Vital Signs:
Vital Signs
Temp Pulse Resp BP Pulse Ox
98.2 F 93 16 126/83 99
10/15/23 07:30 10/15/23 09:03 10/15/23 07:30 10/15/23 09:03 10/15/23 08:00
I&O
10/14/23 10/15/23 10/16/23
06:59 06:59 06:59
Intake Total 1300 / 1300 480 / 480
Output Total 4200 / 4200 875 / 875
Balance -2900 / -2900 -395 / -395
Physical Exam
-
General: No Apparent Distress
HEENT: Negative Oxygen
Respiratory: Clear to Auscultation
Cardiac: Regular Rhythm, S1/S2 and Tachycardic
GI: Soft, Nontender, Nondistended and Normal Bowel Sounds
Musculoskeletal: Edema, Right Upper Extrem, Edema, Left Upper Extrem and Other (Bilateral anterior shoulder dressing - dried up blood, both arm in sling)
Neuro: Awake, Alert, Oriented and AO x 3
Psych: Calm
--- NOTE | 2023-10-15 11:00 | W.PN.NEPH.PH ---
Today's Communication / Plan
-
samsca
Assessment/Plan
-
Impression:
Euvolemic hyponatremia
Mechanical fall due to alcohol intoxication with bilateral humeral head fractures and subacute ninth and 10th rib fracture
Alcohol withdrawal with ongoing history of alcohol abuse
Prolonged QT C
Hypomagnesemia
vit D def
Plan:
samsca again
NaCL labs with lasix
follow BMP
-
-
Date of Service: October 15, 2023
CC / HPI / ROS
-
Chief Complaint:
hyponatremia
History of Present Illness:
sodium dropping to 128
BP stable
hgb stable 8.9
k normal
Shoulder pain improving
Review of Systems:
controlled pain bilateral shoulder pain
Rt UE edema better
no n/v
Labs
-
Labs:
WBC 8.9 10^3/uL (4.8-10.8) 10/15/23 05:09
RBC 2.65 10^6/uL (4.20-5.40) L 10/15/23 05:09
Hgb 8.9 g/dL (12.0-16.0) L 10/15/23 05:09
Hct 26.2 % (37.0-47.0) L 10/15/23 05:09
Plt Count 331 10^3/uL (130-400) D 10/15/23 05:09
Sodium 128 mmol/L (135-145) L 10/15/23 05:09
Potassium 3.5 mmol/L (3.5-5.1) 10/15/23 05:09
Chloride 100 mmol/L (98-107) 10/15/23 05:09
Carbon Dioxide 25 mmol/L (22-30) 10/15/23 05:09
BUN 5 mg/dl (7-17) L 10/15/23 05:09
Creatinine 0.5 mg/dL (0.6-1.0) L 10/15/23 05:09
eGFR > 60.00 10/15/23 05:09
Glucose 97 mg/dl (70-99) 10/15/23 05:09
Calcium 8.5 mg/dl (8.4-10.2) 10/15/23 05:09
Phosphorus 3.5 mg/dl (2.5-4.5) 10/10/23 03:49
Albumin 2.7 g/dl (3.5-5.0) L 10/12/23 05:05
Physical Exam
-
Vital Signs:
Vital Signs
Temp Pulse Resp BP Pulse Ox
98.2 F 93 16 126/83 99
10/15/23 07:30 10/15/23 09:03 10/15/23 07:30 10/15/23 09:03 10/15/23 08:00
Cardiovascular:: Regular rate and rhythm
Respiratory:: Bilateral: Coarse
Lung Excursion:: Normal
Abdomen:: Nontender and Soft
Bowel Sounds:: Normal
Extremity Edema:: None: Bilateral:
[2023-10-15] MEDS: SAMSCA 15 MG PO (11:34)
[2023-10-15] MEDS: SODIUM CHLORIDE 1 GRAM PO ×2 (11:34→20:03)
[2023-10-15 11:57] VITALS: BP 125/81
--- NOTE | 2023-10-15 15:20 | CM ---
Reviewed the chart notes and spoke with the patient at the bedside. PT recommending SNF/rehab. [facility] no beds, [facility] has accepted the patient pending auth.
[facility]
Dr. Kendrick
Pended Auth#[id number] received from [facility].
Clinicals faxed to: [phone])
Plan: Discharge to [facility] once auth obtained.
[2023-10-15 15:25] VITALS: BP 135/85
[2023-10-15] MEDS: LOVENOX 40 MG SC (17:04)
[2023-10-15 19:56] VITALS: BP 156/80
[2023-10-15 23:10] VITALS: BP 143/89
[2023-10-16] VITALS (7 sets, daily range): BP systolic 121–157; BP diastolic 69–82; PULSE 83; O2SAT 98; BMI 22.6
[2023-10-16] MEDS: ROXICODONE 10 MG PO ×5 (01:42→21:33)
[2023-10-16 06:32] LABS: Blood Urea Nitrogen 4 mg/dl (7-17); Calcium 8.5 mg/dl (8.4-10.2); Carbon Dioxide 25 mmol/L (22-30); Chloride 105 mmol/L (98-107); Estimated Creatinine Clearance 80 ml/min; Glucose 111 mg/dl (70-99); Potassium 3.8 mmol/L (3.5-5.1); Sodium 134 mmol/L (135-145); eGFR > 60.00
[2023-10-16] MEDS: NICODERM TRANSDERMAL 21 MG TRANSDERM (08:14)
[2023-10-16] MEDS: VITAMIN B1 100 MG PO ×2 (08:14→20:37)
[2023-10-16] MEDS: TOPROL XL 50 MG PO ×2 (08:15→20:37)
[2023-10-16] MEDS: FOLVITE 1 MG PO (08:15)
[2023-10-16] MEDS: SODIUM CHLORIDE 1 GRAM PO ×2 (08:16→20:37)
[2023-10-16] MEDS: MIRALAX PO (08:16)
--- NOTE | 2023-10-16 10:55 | W.PN.HOSP.TC ---
Today's Communication/Plan
-
Cont NaCl tab/lasix
nephro recs
await placement
Assessment / Plan
Assessment / Plan
# Mechanical fall 2/2 alcohol intoxication with bilateral humeral head fractures
subacute right rib fractures
-Bilateral arm slings
-s/p bilateral shoulder surg on 10/10
-post op day 1 had significant pain, much better now
-last BM on 10/09 - provide dose of laxative
-will need rehab placement earliest sunday. [facility] b/l UE.
-F/u with ortho in office in 2 weeks
#Alcohol withdrawal -resolved
Alcohol abuse
-EtOH negative, last drink at 10/06 Noon
-Normally drinks 1/3-1 bottle 750 mL vodka daily
-Patient would benefit with alc rehab but with b/l humeral fracture will need physical rehab first.
-Finished course of phenobarb
# Acute hyponatremia
much improved
-TSH/FT4 wnl
-suspecting low solute intake vs ADH excess state with pain
-s/p doses of samsca.
-Patient started back on fluid restriction
-Na improved to 134.
-started on lasix q48h and NaCl 1g BID.
# RUE swelling
-from infiltrated IV line with 3% NS infusion
-unable to do US due to fracture - arms needs to be extended outward
#Prolonged QTc - resolved
Hypomagnesemia
-QTc 614 at admit
-repeat EKG showed improvement in QTc to 437 ms
-Tigan as needed nausea vomiting
-Avoid any QTc prolonging medication
#Leukocytosis likely secondary to fall - normalized
-CT chest negative
#Acute on chronic macrocytic anemia
-no intraperitoneal bleed on CT a/p
-no luminal blood loss/denies h/o of pud/gi bleed
-s/p 2 u PRBC this admit.
#Essential Hypertension
HTN urgency
-increased toprol xl dose to 50mg/bid
-adding losartan 25mg/d
-PRN hydralazine for sbp > 160
-BP improved to 126/83
DVT prophylaxis -Subcu Lovenox
Full code
PT/OT
Dispo-SNF. Await auth. nephro recs.
Anticipated Discharge: Today
Subjective/Interval History
-
Date of Service: October 16, 2023
Tolerating diet
Pain relieved with pain meds
Objective Data
-
Labs:
Laboratory Results
10/16/23
05:35
Sodium 134 L
Potassium 3.8
Chloride 105
Carbon Dioxide 25
BUN 4 L
Creatinine 0.5 L
Glucose 111 H
Calcium 8.5
Vital Signs:
Vital Signs
Temp Pulse Resp BP Pulse Ox
98.4 F 88 18 146/82 100
10/16/23 07:48 10/16/23 07:48 10/16/23 07:48 10/16/23 08:15 10/16/23 08:00
I&O
10/15/23 10/16/23 10/17/23
06:59 06:59 06:59
Intake Total 480 / 480 2009
Output Total 875 / 875 1400 / 1400
Balance -395 / -395 610 / 610
Physical Exam
-
General: No Apparent Distress
HEENT: Negative Oxygen
Respiratory: Clear to Auscultation
Cardiac: Regular Rhythm, S1/S2 and Tachycardic
GI: Soft, Nontender, Nondistended and Normal Bowel Sounds
Musculoskeletal: Edema, Right Upper Extrem, Edema, Left Upper Extrem and Other (Bilateral anterior shoulder dressing - dried up blood, both arm in sling)
Neuro: Awake, Alert, Oriented and AO x 3
Psych: Calm
[2023-10-16] MEDS: LASIX 10 MG PO (11:47)
--- NOTE | 2023-10-16 12:03 | W.PN.NEPH.PH ---
Today's Communication / Plan
-
follow BMP
Assessment/Plan
-
Impression:
Euvolemic hyponatremia
Mechanical fall due to alcohol intoxication with bilateral humeral head fractures and subacute ninth and 10th rib fracture
Alcohol withdrawal with ongoing history of alcohol abuse
Prolonged QT C
Hypomagnesemia
vit D def
Plan:
no samsca today
NaCL labs with lasix
follow BMP
dc planning
-
-
Date of Service: October 16, 2023
CC / HPI / ROS
-
Chief Complaint:
hyponatremia
History of Present Illness:
sodium up to 133 with samsca
BP stable
hgb stable
k normal
Review of Systems:
controlled pain bilateral shoulder pain
Rt UE edema better
no n/v
Labs
-
Labs:
WBC 8.9 10^3/uL (4.8-10.8) 10/15/23 05:09
RBC 2.65 10^6/uL (4.20-5.40) L 10/15/23 05:09
Hgb 8.9 g/dL (12.0-16.0) L 10/15/23 05:09
Hct 26.2 % (37.0-47.0) L 10/15/23 05:09
Plt Count 331 10^3/uL (130-400) D 10/15/23 05:09
Sodium 134 mmol/L (135-145) L 10/16/23 05:35
Potassium 3.8 mmol/L (3.5-5.1) 10/16/23 05:35
Chloride 105 mmol/L (98-107) 10/16/23 05:35
Carbon Dioxide 25 mmol/L (22-30) 10/16/23 05:35
BUN 4 mg/dl (7-17) L 10/16/23 05:35
Creatinine 0.5 mg/dL (0.6-1.0) L 10/16/23 05:35
eGFR > 60.00 10/16/23 05:35
Glucose 111 mg/dl (70-99) H 10/16/23 05:35
Calcium 8.5 mg/dl (8.4-10.2) 10/16/23 05:35
Phosphorus 3.5 mg/dl (2.5-4.5) 10/10/23 03:49
Albumin 2.7 g/dl (3.5-5.0) L 10/12/23 05:05
Physical Exam
-
Vital Signs:
Vital Signs
Temp Pulse Resp BP Pulse Ox
98.4 F 86 18 140/82 98
10/16/23 11:25 10/16/23 11:25 10/16/23 11:25 10/16/23 11:47 10/16/23 11:25
Cardiovascular:: Regular rate and rhythm
Respiratory:: Bilateral: Coarse
Lung Excursion:: Normal
Abdomen:: Nontender and Soft
Bowel Sounds:: Normal
Extremity Edema:: None: Bilateral:
--- NOTE | 2023-10-16 14:21 | CM ---
Addendum entered by Chantel Aguilera RN 10/16/23 15:44:
Call placed to [phone] and spoke with guest service representative regarding cancelled auth. Auth rebuilt, new [id number]. Reviewed clinicals with Megan KUMARI. Await determination.
Original Note:
Reviewed the chart notes and call [facility] Jonnathan Torres. Per automated check of auth, it was cancelled. Resubmitted by fax with request to expedite due to somehow the auth got cancelled. CM continues to be available to patient/family and is
monitoring medical plan for needs at discharge.
Plan: Discharge to [facility] once auth is obtained.
[2023-10-17] MEDS: ROXICODONE 10 MG PO ×3 (01:52→10:39)
--- NOTE | 2023-10-17 03:34 | DOWNTIME ---
There was a [employer] Downtime on 10/17/2023 from 0100 to 10/17/2023 at 0322. Downtime documentation of patient's care, including medication administrations, has been reconciled in the electronic record per guidelines. Refer to the
patient's paper chart under the miscellaneous tab to see printed paper medication records and downtime forms.
[2023-10-17 03:51] VITALS: BP 146/79
[2023-10-17 06:47] LABS: Blood Urea Nitrogen 5 mg/dl (7-17); Calcium 8.2 mg/dl (8.4-10.2); Carbon Dioxide 23 mmol/L (22-30); Chloride 104 mmol/L (98-107); Estimated Creatinine Clearance 80 ml/min; Glucose 104 mg/dl (70-99); Potassium 3.5 mmol/L (3.5-5.1); Sodium 131 mmol/L (135-145); eGFR > 60.00
[2023-10-17 07:48] VITALS: BP 159/71
[2023-10-17] MEDS: SODIUM CHLORIDE 1 GRAM PO (08:35)
[2023-10-17] MEDS: FOLVITE 1 MG PO (08:35)
[2023-10-17] MEDS: NICODERM TRANSDERMAL 21 MG TRANSDERM (08:35)
[2023-10-17] MEDS: TOPROL XL 50 MG PO (08:36)
[2023-10-17] MEDS: MIRALAX PO (08:36)
[2023-10-17] MEDS: VITAMIN B1 100 MG PO (08:39)
--- NOTE | 2023-10-17 10:10 | W.PN.HOSP.TC ---
Today's Communication/Plan
-
Awaiting insurance auth
nephro recs
trend bp
Assessment / Plan
Assessment / Plan
# Mechanical fall 2/2 alcohol intoxication with bilateral humeral head fractures
# Subacute ninth 10th right rib fractures
-Bilateral arm slings
-s/p bilateral shoulder surg on 10/10
-post op day 1 had significant pain, much better now
-will need rehab placement. [facility] b/l UE.
-F/u with ortho in office in 2 weeks
#Alcohol withdrawal -resolved
Alcohol abuse
-EtOH negative, last drink at 10/06 Noon
-Normally drinks 1/3-1 bottle 750 mL vodka daily
-Patient would benefit with alc rehab but with b/l humeral fracture will need physical rehab first.
-Finished course of phenobarb
# Acute hyponatremia
much improved
-TSH/FT4 wnl
-suspecting low solute intake vs ADH excess state with pain
-s/p doses of samsca.
-Patient started back on fluid restriction
-Na improved to 131.
-started on lasix q48h and NaCl 1g BID.
# RUE swelling
-from infiltrated IV line with 3% NS infusion
-unable to do US due to fracture - arms needs to be extended outward
#Prolonged QTc - resolved
Hypomagnesemia
-QTc 614 at admit
-repeat EKG showed improvement in QTc to 437 ms
-Tigan as needed nausea vomiting
-Avoid any QTc prolonging medication
#Leukocytosis likely secondary to fall - normalized
-CT chest negative
#Acute on chronic macrocytic anemia
-no intraperitoneal bleed on CT a/p
-no luminal blood loss/denies h/o of pud/gi bleed
-s/p 2 u PRBC this admit.
#Essential Hypertension -elevated due to pain
HTN urgency
-increased toprol xl dose to 50mg/bid
-PRN hydralazine for sbp > 160
-trend BP for now.
DVT prophylaxis -Subcu Lovenox
Full code
PT/OT
Dispo-SNF. Await auth. nephro recs.
Anticipated Discharge: Within 24 hours
Subjective/Interval History
-
Date of Service: October 17, 2023
states of some pain at b/l shoulder due to movement
eating breakfast
Objective Data
-
Labs:
Laboratory Results
10/17/23
05:02
Sodium 131 L
Potassium 3.5
Chloride 104
Carbon Dioxide 23
BUN 5 L
Creatinine 0.5 L
Glucose 104 H
Calcium 8.2 L
Vital Signs:
Vital Signs
Temp Pulse Resp BP Pulse Ox
98.9 F 85 16 159/71 99
10/17/23 07:48 10/17/23 08:36 10/17/23 07:48 10/17/23 08:36 10/17/23 07:48
I&O
10/16/23 10/17/23 10/18/23
06:59 06:59 06:59
Intake Total 2009 1320 / 1320
Output Total 1400 / 1400 750 / 750
Balance 610 / 610 570 / 570
--- NOTE | 2023-10-17 10:17 | W.PN.NEPH.PH ---
Today's Communication / Plan
-
maintain FR and lasix
low dose samsca provided
Assessment/Plan
-
Impression:
Euvolemic hyponatremia
Mechanical fall due to alcohol intoxication with bilateral humeral head fractures and subacute ninth and 10th rib fracture
Alcohol withdrawal with ongoing history of alcohol abuse
Prolonged QT C
Hypomagnesemia
vit D def
Plan:
7.5mg samca provided again
NaCL labs with lasix
follow BMP
dc planning
-
-
Date of Service: October 17, 2023
CC / HPI / ROS
-
Chief Complaint:
hyponatremia
History of Present Illness:
sodium dropping
BP stable
hgb stable
k normal
Review of Systems:
controlled pain bilateral shoulder pain
Rt UE edema better
no n/v
Labs
-
Labs:
WBC 8.9 10^3/uL (4.8-10.8) 10/15/23 05:09
RBC 2.65 10^6/uL (4.20-5.40) L 10/15/23 05:09
Hgb 8.9 g/dL (12.0-16.0) L 10/15/23 05:09
Hct 26.2 % (37.0-47.0) L 10/15/23 05:09
Plt Count 331 10^3/uL (130-400) D 10/15/23 05:09
Sodium 131 mmol/L (135-145) L 10/17/23 05:02
Potassium 3.5 mmol/L (3.5-5.1) 10/17/23 05:02
Chloride 104 mmol/L (98-107) 10/17/23 05:02
Carbon Dioxide 23 mmol/L (22-30) 10/17/23 05:02
BUN 5 mg/dl (7-17) L 10/17/23 05:02
Creatinine 0.5 mg/dL (0.6-1.0) L 10/17/23 05:02
eGFR > 60.00 10/17/23 05:02
Glucose 104 mg/dl (70-99) H 10/17/23 05:02
Calcium 8.2 mg/dl (8.4-10.2) L 10/17/23 05:02
Phosphorus 3.5 mg/dl (2.5-4.5) 10/10/23 03:49
Albumin 2.7 g/dl (3.5-5.0) L 10/12/23 05:05
Physical Exam
-
Vital Signs:
Vital Signs
Temp Pulse Resp BP Pulse Ox
98.9 F 85 16 159/71 99
10/17/23 07:48 10/17/23 08:36 10/17/23 07:48 10/17/23 08:36 10/17/23 07:48
Cardiovascular:: Regular rate and rhythm
Respiratory:: Bilateral: CTA
Lung Excursion:: Normal
Abdomen:: Nontender
Bowel Sounds:: Normal
Extremity Edema:: None: Bilateral:
Garay Catheter: No
[2023-10-17] MEDS: SAMSCA 7.5 MG PO (10:37)
--- NOTE | 2023-10-17 11:02 | CM ---
Addendum entered by Malini Bar 10/17/23 12:40:
Per patient's nurse, patient's will transport patient to [facility] [place] ~1:30 today
Addendum entered by Malini Bar 10/17/23 11:10:
Plan: discharge to [facility] [place] SNF today
Report: #[phone]
FAX: #[phone]
Notified patient's spouse, Nilson, of discharge plan to [facility] [place] today.
stated that he will provide transport to facility when ready for discharge.
Original Note:
Per Attending, patient is stable for discharge; insurance authorization was approved
Bed at [facility] [place] is available today. Attending notified
Report: #[phone]
FAX: #[phone]
[2023-10-17 11:15] VITALS: BP 160/81
--- NOTE | 2023-10-17 11:27 | W.DCSUMMARY ---
Discharge Summary
Discharge Data
Date of Admission: 10/07/23
Date of Discharge: 10/17/23
-
Pending Results: No
Hospital Course
53-year-old female past medical history of hypertension, alcohol abuse, daily alcohol intake, history of withdrawal alcohol symptoms who is presenting after a fall which was seems secondary to his alcohol abuse. Upon admission patient was found to
have bilateral fracture and dislocation, proximal humerus and glenohumeral joint. Patient was eval by orthopedic and underwent surgery. s/p right proximal humerus ORIF and left shoulder hemiarthroplasty with Dr. Myers 10/11/2023. Nonweightbearing
bilateral upper extremities. Aspirin was started for DVT prophylaxis. Patient also with severe hyponatremia and received multiple doses of Samsca. Patient was started on sodium chloride tablets with low-dose Lasix. Patient finished course of
phenobarbital taper regimen for alcohol withdrawal. Patient was tolerating diet. QTc was prolonged admission which improved. Repeat EKG with QTc of 437. Patient also with anemia and received 2 units of PRBC. Patient with elevated blood pressure
and metoprolol dose was adjusted. Patient was eval by PT and OT [facility]. Patient went to follow-up with orthopedic as outpatient. Will need repeat BMP at [facility].
Discharge Plan
-
Patient Disposition: Group Home/SNF
Discharge Diagnosis/Procedures: Mechanical fall 2/2 alcohol intoxication with bilateral humeral head fractures
subacute ninth 10th right rib fractures
Alcohol withdrawal
Acute hyponatremia
Prolonged QTc
Hypomagnesemia
Leukocytosis
Primary hypertension
Hypertension urgency
Condition: Fair
Diet: Regular and Restrict fluids to 48 oz
Driving Restrictions: No driving
Blood Work: BMP in 3-5 days via primary doctor.
Activity Restrictions/Additional Instructions:
Sling right shoulder and abductor pillow sling left shoulder
Nonweightbearing bilateral upper extremities
Skin clip removal [address] Myers office
Full dose aspirin for 30 days.
Referrals:
NONE,* [Family Provider] - in less than 1 week
Spencer Myers MD [Active] - in two weeks
Prescriptions:
New
polyethylene glycol 3350 [HealthyLax] 17 gram Powder In Packet
17 g PO DAILY 14 Days Qty: 14 0RF
metoprolol succinate 50 mg Tablet Extended Release 24 Hr
50 mg PO BID 30 Days Qty: 60 0RF
nicotine 21 mg/24 hr Patch 24 Hour
21 mg transdermal DAILY 28 Days Qty: 28 0RF
furosemide 20 mg Tablet
10 mg PO Q48H 30 Days Qty: 8 0RF
oxycodone 5 mg Tablet
5 mg PO Q4HPRN PRN (Reason: severe pain) Qty: 7 0RF
sodium chloride 1,000 mg Tablet,Soluble
1,000 mg PO BID 30 Days Qty: 60 0RF
acetaminophen [Tylenol 8 Hour] 650 mg tablet extended release
650 mg PO Q4HPRN PRN (Reason: fever or pain) Qty: 30 0RF
ergocalciferol (vitamin D2) 1,250 mcg (50,000 unit) Capsule
1,250 mcg PO Q7D Qty: 6 0RF
aspirin 325 mg capsule
325 mg PO DAILY Qty: 30 0RF
pantoprazole [Protonix] 20 mg tablet,delayed release (DR/EC)
40 mg PO DAILY Qty: 30 0RF
Discontinued
ibuprofen [Advil] 200 mg Tablet
600 mg PO DAILYPRN PRN (Reason: mild pain)
Discharge Orders:
Discharge Patient (As Directed); Ordered 10/17/23
Ordered By: Bernardino Brandt
Discharge Date and Time
Print Language: MARSHALLESE
[2023-10-17] MEDS: DRISDOL (VITAMIN D2) 50000 UNITS PO (11:59)
== END 2023-10-17 13:22 | DRG 483 ==
LOC: 2 SOUTH 18:40
PROVIDERS: Clinical Nurse Specialist Family Health; Hospitalist; Internal Medicine; Specialist; ADMITTING PHYSICIAN Internal Medicine; ATTENDING PHYSICIAN Hospitalist; CONSULT PHYSICIAN Orthopaedic Surgery Hand Surgery; CONSULT PHYSICIAN Specialist; EMERGENCY PHYSICIAN Emergency Medicine
PROC: 0RRK0J6 Replacement of Left Shoulder Joint with Synthetic Substitute, Humeral Surface, Open Approach (ICD-10-PCS; 2023-10-11)
PROC: 0PSC04Z Reposition Right Humeral Head with Internal Fixation Device, Open Approach (ICD-10-PCS; 2023-10-11)
PROC: 0LS40ZZ Reposition Left Upper Arm Tendon, Open Approach (ICD-10-PCS; 2023-10-11)
DX: S42.291A Other displaced fracture of upper end of right humerus, initial encounter for closed fracture (principal); S22.41XA Multiple fractures of ribs, right side, initial encounter for closed fracture; S42.292A Other displaced fracture of upper end of left humerus, initial encounter for closed fracture; F10.139 Alcohol abuse with withdrawal, unspecified; E87.1 Hypo-osmolality and hyponatremia; W18.30XA Fall on same level, unspecified, initial encounter; R94.31 Abnormal electrocardiogram [ECG] [EKG]; E83.42 Hypomagnesemia
CPT/HCPCS: 70450; 71260; 72125; 73020; 73030; 73200; 74176; 76000; 80048; 80051; 80053; 80306; 80307; 81003; 81015; 82010; 82077; 82306; 82728; 82977; 83540; 83550; 83735; 83930; 83935; 84100; 84300; 84443; 85025; 85027; 85610; 85730; 86850; 86900; 86901; 86920; 93005; 96361; 96372; 96374; 96375; 96376; 97110; 97116; 97163; 97167; 97530; 97535; 99285; 99406; C1713; C1776; P9016; Q9967

== ENCOUNTER → 2023-10-19 13:03 | Outpatient (REF) | payer BC, SELFPAY ==
[2023-10-19 13:27] LABS: Blood Urea Nitrogen 5 mg/dl (7-17); Calcium 8.5 mg/dl (8.4-10.2); Carbon Dioxide 23 mmol/L (22-30); Chloride 103 mmol/L (98-107); Glucose 95 mg/dl (70-99); Sodium 135 mmol/L (135-145); eGFR > 60.00
== END ==
LOC: OLABP 13:03
PROVIDERS: ATTENDING PHYSICIAN Family Medicine
DX: E87.1 Hypo-osmolality and hyponatremia (principal)
CPT/HCPCS: 36415; 80048

== ENCOUNTER → 2024-04-25 07:24 | Outpatient (REF) | payer BC, SELFPAY | LOC: HWRCS 07:24 | PROVIDERS: ATTENDING PHYSICIAN Student in an Organized Health Care Education/Training Program | DX: Z86.79 Personal history of other diseases of the circulatory system (principal) | CPT/HCPCS: 93306 ==

== ENCOUNTER 2024-05-22 12:13 | Emergency (ER) | payer BC, SELFPAY ==
[2024-05-22 12:20] VITALS: BP 157/107
--- NOTE | 2024-05-22 14:21 | ED.GENMED ---
History of Present Illness
General
Chief Complaint: Change in Mental Status
Time Seen by Provider: 05/22/24 14:20
History of Present Illness
History of Present Illness:
TIME OF INITIAL ENCOUNTER: 2:20 PM
HPI: The patient was brought here by her due to concerns for change in her behavior. The states that she has been delusional recently. He states that she has had pressured speech. He is concerned that she is now 'manic'. She has
never had issues like this before. She has had trouble sleeping. Her symptoms started around the time that she was weaned off of tramadol. The patient provides no meaningful history but says that she wants to leave by 3 PM.
EXAM:
GENERAL: Well appearing in no distress
HEENT: Moist oral mucosa, poor dentition
CARDIOVASCULAR: Normal heart rate, regular rhythm, No chest wall tenderness
PULMONARY: No respiratory distress, breath sounds are clear and equal
ABDOMEN: Soft with no peritoneal signs, no tenderness
NEUROLOGIC: Excellent strength all extremities, no coordination deficits
PSYCHIATRIC: The patient has pressured speech, she lacks logic, she is delusional,
EXTREMITIES: Nontender, no edema, moves all extremities equally
SKIN: No rash, no lesions
NUMBER AND COMPLEXITY OF PROBLEMS ADDRESSED AT THE ENCOUNTER
� Chronic conditions affecting care: Alcohol abuse, cardiomyopathy
� Acute Exacerbation and/or Progression of Chronic Illness: This is an acute problem
� Differential Diagnosis includes: Acute psychosis, bipolar disorder, medication related, thyroid disease, alcohol withdrawal, alcoholism
AMOUNT AND/OR COMPLEXITY OF DATA TO BE REVIEWED AND ANALYZED
� I performed an independent evaluation of and my interpretation is:
EKG:
CT: CT brain unremarkable
X-rays:
Laboratory Studies: MCV is 88, alcohol undetected
Other:
� Review of other/old records: I reviewed records. The patient was seen here in September 2023 with fracture dislocation after a fall. She was also severely hyponatremic at that time and received Samsca.
� Clinical information was obtained by an independent historian: I spoke to the at length
� Prescriptions/Medications Considered but not given:
� Further testing considered but not performed:
RISK OF COMPLICATIONS AND/OR MORBIDITY OR MORTALITY OF PATIENT MANAGEMENT
� Social determinants of health affecting care: Lives at home
� Discussion with other providers: I discussed case with Dr. Fraser who agrees the patient should be 302'd. I spoke to crisis and they are working on placement.
� Escalation of care including admission/observation vs risk of discharge considered: Lab work and CT brain unremarkable.
ANY OTHER UPDATES:
Shortly after her initial evaluation, she became increasingly agitated. IV was placed and she was given 1.5 mg of IV Ativan (she pulled her arm away before the full dose was given). There has been some improvement worth her agitation.
5:20 PM: Requesting nicotine patch which I have ordered and will give some additional Ativan as she is becoming more agitated again.
8:15 PM: Pending placement. UDS positive for benzos (given here, denies benzo use at home), and positive for marijuana
Past History
Past History
ED Past Medical History: CHF (Cardiomyopathy)
Social History
Tobacco: Smoker
Alcohol: Chronic alcoholic
Drug: None
Personal: Other
Living: with family
Employment: Employed (Hairdresser)
Family History
Family History: Other (Noncontributory)
Phy Exam
Physical Exam
Physical Exam:
See HPI
Course
Orders/Labs/Results
Orders:
Orders
05/22/24 14:32
Consult Psychiatry [PSYCHIATRY CONSULT] Urgent
Consulting Provider: Carly Fraser
Was physician already notified: Yes
05/22/24 14:35
Crisis Consult Urgent
Reason for Consult: psych eval placement
05/22/24 14:40
CT Head W/o Iv Contrast Urgent
Comment:
Reason For Exam: change in mental status
05/22/24 14:57
Alcohol Urgent
Ammonia Urgent
Complete Blood Count/With Diff Urgent
Comprehensive Metabolic Panel Urgent
TSH Reflex To Free T4 Urgent
05/22/24 Dinner
Regular
At Your Request: Full Participation
Does patient need a safe tray?: Yes
05/22/24 15:35
Lorazepam [Ativan] 2 mg .ROUTE .STK-MED ONE
05/22/24 15:36
Lorazepam [Ativan] 2 mg IV NOW STA
05/22/24 15:53
Lorazepam [Ativan] 1 mg IM Q6HPRN PRN
05/22/24 15:55
Lorazepam [Ativan] 1 mg PO Q6HPRN PRN
05/22/24 15:56
ECG [Electrocardiogram (*1)] Routine
Reason for Study: QTc Monitoring
05/22/24 15:58
One to One Observation - Suicide/Violent [1:1 Observation - Suicide/ Violent Behavior] As Directed
05/22/24 17:17
Nicotine [Nicoderm Transdermal] 7 mg TRANSDERM NOW STA
05/22/24 17:19
Lorazepam [Ativan] 1 mg IV NOW STA
05/22/24 17:59
Fentanyl, Urine Urgent
Urinalysis Reflex To Culture Urgent
Date Specimen was Collected: 05/22/24
Time Specimen was Collected: 17:58
Urine Drug Abuse Screen Urgent
Date Specimen was Collected: 05/22/24
Time Specimen was Collected: 16:04
Urine Microscopic Reflex Cult Urgent
Urine Culture Urgent
EPIFANIO Source: U
Specimen Description:
Date Specimen was Collected: 05/22/24
Time Specimen was Collected: 17:58
05/22/24 22:00
Risperidone [Risperdal] 1 mg PO HS
05/23/24 06:00
Folate IN AM
Vitamin B12 IN AM
Abnormal Lab Results
05/22/24 05/22/24
14:57 17:59
MCH 31.6 H pg
(27.0-31.0)
MPV 10.9 H fL
(7.4-10.4)
Glucose 101 H mg/dl
(70-99)
Ammonia < 9 L umol/L
(9-30)
Urine Bilirubin 1+ A
(Negative)
Leukocyte Esterase Rfl 2+ A
(Negative)
Urine WBC (Reflex) 11-15 A /HPF
(0-5)
Urine Bacteria (Reflex) Many A
(Negative)
U Benzodiazepines Scrn Positive H
(Negative)
U Marijuana (THC) Screen Positive H
(Negative)
05/22/24 14:57
05/22/24 14:57
Vital Signs
Initial and Last Documented VS:
Initial Vital Signs
Temp Pulse Resp BP Pulse Ox
98.2 F 100 18 157/107 100
05/22/24 12:20 05/22/24 12:20 05/22/24 12:20 05/22/24 12:20 05/22/24 12:20
Last Documented Vital Signs
Temp Pulse Resp BP Pulse Ox
98.2 F 88 18 110/75 99
05/22/24 12:20 05/22/24 18:16 05/22/24 18:16 05/22/24 18:16 05/22/24 18:16
*Critical Care Note
Total Time (30-74mins, 75-104mins- exclusive of procedures): Not Applicable
ED Attending Note
-
Portions of this chart may have been created with voice recognition software.� Occasional wrong word or��sound alike� substitutions may have occurred due to the inherent limitations of voice recognition software.
Discharge Plan
Departure
Patient Disposition: Psych Facility
Date of Disposition: 05/22/24
Time of Disposition: 17:21
Discharge Problem:
Lissett
Prescriptions:
No Action
polyethylene glycol 3350 [HealthyLax] 17 gram Powder In Packet
17 g PO DAILY 14 Days Qty: 14 0RF
metoprolol succinate 50 mg Tablet Extended Release 24 Hr
50 mg PO BID 30 Days Qty: 60 0RF
nicotine 21 mg/24 hr Patch 24 Hour
21 mg transdermal DAILY 28 Days Qty: 28 0RF
furosemide 20 mg Tablet
10 mg PO Q48H 30 Days Qty: 8 0RF
oxycodone 5 mg Tablet
5 mg PO Q4HPRN PRN (Reason: severe pain) Qty: 7 0RF
sodium chloride 1,000 mg Tablet,Soluble
1,000 mg PO BID 30 Days Qty: 60 0RF
acetaminophen [Tylenol 8 Hour] 650 mg tablet extended release
650 mg PO Q4HPRN PRN (Reason: fever or pain) Qty: 30 0RF
ergocalciferol (vitamin D2) 1,250 mcg (50,000 unit) Capsule
1,250 mcg PO Q7D Qty: 6 0RF
aspirin 325 mg capsule
325 mg PO DAILY Qty: 30 0RF
pantoprazole [Protonix] 20 mg tablet,delayed release (DR/EC)
40 mg PO DAILY Qty: 30 0RF
Referrals:
NONE,* [Active] -
Interventions
Interventions:
*Risk Screen - Suicide Last Done: 05/22/24 15:01
*General Assessment Last Done: 05/22/24 15:01
*Neglect/Abuse Screening Last Done: 05/22/24 15:01
*ED COVID-19 Vaccine History Last Done: 05/22/24 15:01
ED-Psychological Assessment Last Done: 05/22/24 18:16
ED- Neurological Assessment Last Done: 05/22/24 15:01
ED Swallowing Screen Last Done: 05/22/24 18:16
Discharge Date and Time
Print Language: GERMAN
[2024-05-22 15:06] LABS: % Basophils 0.7 % (0-2); % Eosinophils 0.8 % (0-6); % Immature Granulocytes 0.3 % (0-0.5); % Lymphocytes 25.6 % (20.5-51.1); % Monocytes 7.4 % (1.7-9.3); % Neutrophils 65.2 % (42.2-75.2); Absolute Basophils 0.1 10^3/uL (0-0.2); Absolute Eosinophils 0.1 10^3/uL (0-0.7); Absolute Lymphocytes 1.8 10^3/uL (1.2-3.4); Absolute Monocytes 0.5 10^3/uL (0.1-0.6); Absolute Neutrophils 4.6 10^3/uL (1.4-6.5); Hematocrit 38.2 % (37.0-47.0); Hemoglobin 13.6 g/dL (12.0-16.0); Mean Corp Hgb Conc. 35.6 g/dL (33.0-37.0); Mean Corpuscular Hgb 31.6 pg (27.0-31.0); Mean Corpuscular Volume 88.8 fL (81.0-99.0); Mean Platelet Volume 10.9 fL (7.4-10.4); Nucleated Red Blood Cells % 0 %; Platelet Count 203 10^3/uL (130-400); Red Cell Dist. Width 13.3 % (11.5-14.5); White Blood Cell Count 7.1 10^3/uL (4.8-10.8)
[2024-05-22 15:17] LABS: Ammonia < 9 umol/L (9-30)
[2024-05-22 15:19] LABS: ALT (SGPT) 18 U/L (0-35); AST (SGOT) 22 U/L (14-36); Albumin 4.4 g/dl (3.5-5.0); Alcohol None Detected; Alkaline Phosphatase 112 U/L (38-126); Blood Urea Nitrogen 16 mg/dl (7-17); Calcium 9.8 mg/dl (8.4-10.2); Carbon Dioxide 23 mmol/L (22-30); Chloride 105 mmol/L (98-107); Glucose 101 mg/dl (70-99); Potassium 3.9 mmol/L (3.5-5.1); Sodium 139 mmol/L (135-145); Total Bilirubin 0.4 mg/dl (0.2-1.3); eGFR > 60.00
--- NOTE | 2024-05-22 15:37 | EDRN ---
Compact Assembler given to security.
Patient tried to leave her room. Patient is very manic and is hard redirect. Patient is having delusions of grandeur saying that she has more medical knowledge than all of the staff here combined. She also said that we could not hold her here, and
knew how a 302 worked. Security called for stand by as the 302 is being filled out.
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
[2024-05-22 15:48] LABS: TSH Reflex To Free T4 0.96 uIU/ml (0.47-4.68)
[2024-05-22] MEDS: ATIVAN 2 MG IV (16:04)
[2024-05-22] MEDS: ATIVAN 1 MG IV (17:53)
[2024-05-22] MEDS: NICODERM TRANSDERMAL 7 MG TRANSDERM (17:58)
[2024-05-22 18:16] VITALS: BP 110/75; BMI 18.7
[2024-05-22 18:16] LABS: Amphetamines Negative (Negative); Barbiturates Negative (Negative); Benzodiazepines Positive (Negative); Buprenorphine Negative (Negative); Cocaine Negative (Negative); Marijuana Positive (Negative); Methadone Negative (Negative); Methamphetamines Negative (Negative); Opiates Negative (Negative); Phencyclidine Negative (Negative); Tricyclic Antidepressants Negative (Negative)
[2024-05-22 18:23] LABS: Urine Albumin Negative (Neg - Trace); Urine Bilirubin 1+ (Negative); Urine Character Clear (Clear); Urine Color Yellow; Urine Glucose Negative (Negative); Urine Ketone Negative (Negative); Urine Leukocyte 2+ (Negative); Urine Nitrite Negative (Negative); Urine Occult Blood Negative (Negative); Urine Urobilinogen Negative (Neg - 1+)
[2024-05-22 18:37] LABS: Fentanyl, Urine Negative (Negative)
[2024-05-22 18:50] LABS: Urine Mucus Many; Urine Red Blood Cell 0-2 /HPF (0-2)
[2024-05-22 18:51] LABS: Urine Bacteria Many (Negative)
[2024-05-23 04:31] LABS: HCG, Urine Qualitative Screen Negative
--- NOTE | 2024-05-23 08:44 | EDRN ---
security came out to nurses station and notified this RN that the pt is asking for a nicotene patch, this RN notified Dr. Holley
[2024-05-23 08:52] VITALS: BP 115/71
--- NOTE | 2024-05-23 08:54 | EDRN ---
this RN entered the pts room and the pt is resting in stretcher sitting on the side of the stretcher completing a puzzle, the pt is calm, cooperative, and pleasant, the pt was agreeable to allowing this RN to obtain vital signs, VS WNL, and charted
in work list, no s/s of distress, no c/o pain, no c/o SOB, no c/o chest pain, this RN completed the pts medication reconciliation with the pt and per the pt, 'The only medications that i am taking and will take are my nicotene patch and my miralax,
i don't need that other stuff and i won't take it even if they order it, and i don't have to, the only things i need are my nicotene patch and my miralax please', this RN notified Dr. Holley and orders were placed, the pt ordered her breakfast, the
pt denies needing anything at this time, one to one observation maintained, mental health event security officer outside of the pts room, will continue to monitor the pt closely
[2024-05-23] MEDS: NICODERM TRANSDERMAL 7 MG TRANSDERM (09:04)
[2024-05-23] MEDS: MIRALAX 17 GRAMS PO (09:04)
--- NOTE | 2024-05-23 10:40 | EDRN ---
the pt ate all her breakfast, is currently resting in stretcher in the lowest position, side rails up x1, HOB elevated, the pt is watching TV, the pt is calm and cooperative and pleasant with staff, no s/s of distress, the pt denies needing anything
at this time, will continue to monitor the pt closely
== END 2024-05-23 11:05 ==
LOC: EMR 12:13
PROVIDERS: CONSULT PHYSICIAN Psychiatry & Neurology Psychiatry; EMERGENCY PHYSICIAN Emergency Medicine; FAMILY PHYSICIAN Student in an Organized Health Care Education/Training Program
DX: F30.9 Manic episode, unspecified (principal); I42.9 Cardiomyopathy, unspecified; I50.9 Heart failure, unspecified; F17.200 Nicotine dependence, unspecified, uncomplicated
CPT/HCPCS: 99284; 70450; 80053; 80306; 80307; 81003; 81015; 81025; 82077; 82140; 84443; 85025; 87086

== ENCOUNTER 2024-09-26 06:25 | Day surgery (SDC) | payer BC, SELFPAY ==
[2024-09-26] VITALS (7 sets, daily range): BP systolic 118–150; BP diastolic 71–93; BMI 19.7
--- NOTE | 2024-09-26 10:47 | HP.FOC2 ---
Focused History & Physical
Chief Complaint
HPI:
Chief Complaint: Right inguinal hernia
HPI / Indication for Planned Procedure: Patient is a 54-year-old female recently seen in outpatient surgical evaluation secondary to a history of a right inguinal hernia that she has been following expectantly. It has slowly become more prominent
and noticeable on a more regular basis. Outpatient surgical evaluation confirmed the presence of a reducible right inguinal hernia. She presents today for scheduled operative correction.
Relevant Past Medical History: Other (Cardiomyopathy with stable ejection fraction in the 40% range, hypercholesterolemia, previous history of alcohol abuse, tobacco use)
Relevant Social History: Tobacco Use
Relevant Family History: Negative
Relevant Past Surgical History: Positive for (D&C, left shoulder replacement, right shoulder fracture repair)
Review of Systems
Review of Pertinent Systems: All Systems Negative
Medication
See Medication form for detailed medications: Yes
Medication List (including Herbals & OTC):
acetaminophen 325 mg tablet (Tylenol) 650 mg PO Q4H PRN pain 07/31/24
ibuprofen 200 mg tablet (Advil) 400 mg PO Q6H PRN pain 07/31/24
Medications Reviewed: Yes
Allergies and Reactions
Patient has Allergies: No
Noted Allergies and Reactions:
Allergy/AdvReac Type Severity Reaction Status Date / Time
No Known Allergies Allergy Verified 07/31/24 10:55
Pertinent Physical Exam
All Other Systems: Negative
Head/Neck: Normal
Lungs: Normal
Heart: Normal
Abdomen: Other (Reducible right inguinal hernia)
Extremities: Normal
Neurological: Normal
Diagnosis / Assessment
54-year-old female presenting for scheduled operative correction symptomatic right inguinal hernia
Plan / Procedure
Laparoscopic TEP repair right inguinal hernia with mesh
Anesthesia/Sedation to be done by Anesthesia Provider: Yes
--- NOTE | 2024-09-26 10:50 | W.SUR.PREOP ---
Pre-Operative Surgical Note
-
I have examined this patient prior to the performance of the scheduled procedure.
The patient's condition is unchanged from the time of the current History and
Physical and the patient is able to undergo the scheduled procedure.
[2024-09-26] MEDS: TYLENOL 1000 MG PO (12:58)
[2024-09-26] MEDS: NORMOSOL-R/PLASMALYTE-A 1000 IV (12:58)
--- NOTE | 2024-09-26 16:38 | W.IMMPOSTOP ---
Addendum entered and electronically signed by Tyler Ames MD 09/26/24 16:49:
#[id number]
Original Note:
Surgical Immed Post Op Note
-
Primary Surgeon: Tyler Ames MD
Assisting Surgeon: Kady Duke PA-c
Pre-op Diagnosis: Right inguinal hernia
Post-op Diagnosis: Right femoral hernia
Procedure Performed: Laparoscopic TEP repair right femoral hernia with mesh; 3D max large mid weight
Anesthesia Type: GETA +0.25% Marcaine
Specimen / Cultures: None
Estimated Blood Loss: 4 mL
Complications: None immediate
Operative Findings: Extraperitoneal right femoral herniorrhaphy. Direct and indirect inguinal locations normal. Right femoral hernia sac and preperitoneal fat reduce. Small peritoneal opening with mobilization overlying right round ligament,
peritoneum closed with laparoscopic clip cab worker. No other sites of peritoneal entry. 3D max large mid weight mesh secured to Daniel's ligament x 2 with capsure tacks
The assistance of Kady Herbert PA-C was required due to the complexity of the procedure. During the procedure Kady Herbert PA-C assisted with laparoscopic trocar placement, managing the laparoscopic camera, and closure of the surgical incision
sites. I was present for the entirety of the operative procedure.
[2024-09-26] MEDS: DILAUDID 0.25 MG IV (17:18)
== END 2024-09-26 18:40 | disposition home or self-care (01) ==
LOC: SDS 06:25
PROVIDERS: ATTENDING PHYSICIAN Surgery
DX: K40.90 Unilateral inguinal hernia, without obstruction or gangrene, not specified as recurrent (principal)
CPT/HCPCS: 49650; C1781

== ENCOUNTER → 2025-01-19 15:31 | Outpatient (REF) | payer BC, SELFPAY | LOC: HWRAD 15:31 | PROVIDERS: ATTENDING PHYSICIAN Student in an Organized Health Care Education/Training Program; FAMILY PHYSICIAN Student in an Organized Health Care Education/Training Program | DX: R05.8 Other specified cough (principal) | CPT/HCPCS: 71046 ==